=== PATIENT | female | born 1960 | race Caucasian/White ===

== ENCOUNTER 2016-09-26 07:34 | Emergency (ER) | payer BC, OTHER ==
[~2016-09-26] VITALS: Ht 165.1 cm; Wt 92.4 kg
[~2016-09-26 07:34] MED LIST: AMOX875T3 PO; ATV/1 PO; B-COTAB18 PO; IBUP-1428 PO; MULT-506 PO; PRAV20TA PO; PRLSR20 PO; PROB1TAB16 PO; RANI300T2 PO; ROPI1TAB70 PO; SNM/25100 PO; TIZA2CAP PO; VENL150T33 PO
[2016-09-26 07:39] VITALS: TEMP 36.8; Ht 165.1 cm; Wt 92.4 kg
--- NOTE | 2016-09-26 08:16 | EMERGENCY ROOM VISIT NOTE ---
History Report prepared by Faustino: Shawn Jimenez Under the Supervision of: Dr. Tj Medrano M.D. First contact with patient: 07:46 Chief Complaint: URINARY SYMPTOMS Stated Complaint: BLOOD IN URINE AND SEVERE PAIN Nursing Triage Summary: pt c/o back pain on right but both sides hurt started , has blood in urine this am. denies nay hx of kidney stones. has hx of uti. pt reports hx of ms History of Present Illness The patient is a 56 year old female who presents to the Emergency Room with complaints of persistent urinary symptoms that started 4 days ago. The patient also complains of back pain and a subjective fever. The discomfort started on the left side of her back, but is now more on her right side. Today, the patient had some blood in her urine. Per patient's daughter she has a history of urinary problems secondary to MS. She states that with her typical UTIs, she does not experience pain like this. She denies vaginal discharge and nausea at this time. Her last normal menstrual period was in 2006. Source of History: patient Onset: 4 days Position: other () Timing: other (persistent) Associated Symptoms: + back pain, + fevers (subjective), No nausea Note: Denies: vaginal discharge Review of Systems All systems have been listed, reviewed, and are negative other than those previously mentioned. Please see Additional Medical History Sheet. Past Medical & Surgical Medical Problems: (1) GERD (gastroesophageal reflux disease) (2) Multiple sclerosis (3) Perirectal abscess (4) UTI (urinary tract infection) Surgical Problems: (1) Previous back surgery Family History Diabetes mellitus Heart disease Hypertension Sepsis Social History Smoking Status: Never Smoker Drug Use: none Marital Status: Housing Status: lives with family Occupation Status: disabled Current/Historical Medications Scheduled Ciprofloxacin Tab (Cipro), 250 MG PO BID Levodopa/Carbidopa (Sinemet 25MG/100MG), 1 TAB PO DIRECTED Multivitamin (Multivitamin), 1 TAB PO DAILY Omeprazole (Prilosec), 40 MG PO DAILY Pravastatin (Pravachol ), 40 MG PO DAILY Probiotic Product (Probiotic), 1 TAB PO DAILY Ranitidine (Zantac), 300 MG PO BID Ropinirole Hydrochloride (Ropinirole Er), 2 MG PO DAILY Tizanidine (Zanaflex), 2 MG PO TID Venlafaxine Hcl (Venlafaxine Hcl Er), 150 MG PO DAILY Scheduled PRN Hydrocodone/Acetaminophen 5MG/325MG ([place] 5MG/325MG), 1-2 TABLETS PO Q4 PRN for Pain Lorazepam (Ativan), 1 MG PO HS PRN for Anxiety Allergies Coded Allergies: Clonazepam (Unverified Allergy, Mild, RASH, 09/26/16) BEE STING (Verified Allergy, Unknown, ., 09/26/16) Cephalexin (Verified Allergy, Unknown, ., 09/26/16) Cephalosporins (Verified Allergy, Unknown, 09/26/16) Gabapentin (Verified Allergy, Unknown, ., 09/26/16) Physical Exam Vital Signs Date Time Temp Pulse Resp B/P Pulse Ox O2 Delivery O2 Flow Rate FiO2 09/26/16 09:30 66 20 126/75 95 09/26/16 07:39 36.8 78 18 133/84 93 Room Air Physical Exam GENERAL: Patient awake, alert, oriented x 3. Patient follows commands. Patient does not appear toxic. Patient is adequately hydrated and well- nourished. SKIN: No erythema, pallor, cyanosis or rash HEENT: Normal head, pupils equal, reactive to light and accommodation. Ears normal. Oral cavity and posterior pharynx appear normal. Neck: Without adenopathy, no neck vein distention. LUNGS: Clear to auscultation. No wheezes, no rales, no rhonchi. HEART: No murmurs. No gallops. No rubs ABDOMEN: No masses, no rebound, no hepatomegaly or splenomegaly. BACK: Vague right CVA tenderness EXTREMITIES: Patient has weakness consistent with her underlying diagnosis with MS. NEUROLOGIC: Cranial nerves II-XII within normal limits. No gross motor sensory function deficits. Medical Decision & Procedures Laboratory Results 09/26/16 08:20 Red Blood Count 4.39, Mean Corpuscular Volume 91.3, Mean Corpuscular Hemoglobin 31.2, Mean Corpuscular Hemoglobin Concent 34.2, Mean Platelet Volume 10.0, Neutrophils (%) (Auto) 56.6, Lymphocytes (%) (Auto) 35.5, Monocytes (%) (Auto) 5.6, Eosinophils (%) (Auto) 1.7, Basophils (%) (Auto) 0.4, Neutrophils # (Auto) 2.61, Lymphocytes # (Auto) 1.64, Monocytes # (Auto) 0.26, Eosinophils # (Auto) 0.08, Basophils # (Auto) 0.02 09/26/16 08:20 Test 09/26/16 08:20 White Blood Count 4.62 K/uL (4.8-10.8) Red Blood Count 4.39 M/uL (4.2-5.4) Hemoglobin 13.7 g/dL (12.0-16.0) Hematocrit 40.1 % (37-47) Mean Corpuscular Volume 91.3 fL (80-100) Mean Corpuscular Hemoglobin 31.2 pg (25-34) Mean Corpuscular Hemoglobin Concent 34.2 g/dl (32-36) Platelet Count 180 K/uL (130-400) Mean Platelet Volume 10.0 fL (7.4-10.4) Neutrophils (%) (Auto) 56.6 % Lymphocytes (%) (Auto) 35.5 % Monocytes (%) (Auto) 5.6 % Eosinophils (%) (Auto) 1.7 % Basophils (%) (Auto) 0.4 % Neutrophils # (Auto) 2.61 K/uL (1.4-6.5) Lymphocytes # (Auto) 1.64 K/uL (1.2-3.4) Monocytes # (Auto) 0.26 K/uL (0.11-0.59) Eosinophils # (Auto) 0.08 K/uL (0-0.5) Basophils # (Auto) 0.02 K/uL (0-0.2) RDW Standard Deviation 43.5 fL (36.4-46.3) RDW Coefficient of Variation 13.0 % (11.5-14.5) Immature Granulocyte % (Auto) 0.2 % Immature Granulocyte # (Auto) 0.01 K/uL (0.00-0.02) Urine Color ORANGE Urine Appearance CLEAR (CLEAR) Urine pH (4.5-7.5) Urine Specific [place] (1.000-1.030) Urine Protein NEG (NEG) Urine Glucose (UA) (NEG) Urine Ketones (NEG) Urine Occult Blood (NEG) Urine Nitrite (NEG) Urine Bilirubin (NEG) Urine Urobilinogen (NEG) Urine Leukocyte Esterase (NEG) Urine RBC 0-4 /hpf (0-4) Urine WBC 10-30 /hpf (0-5) Urine Epithelial Cells >30 /lpf (0-5) Urine Bacteria 1+ (NEG) Anion Gap 7.0 mmol/L (3-11) Est Creatinine Clear Calc Drug Dose 87.2 ml/min Estimated GFR () 95.6 Estimated GFR (Non- 82.5 BUN/Creatinine Ratio 27.1 (10-20) Calcium Level 9.0 mg/dl (8.5-10.1) Laboratory results as stated above per my review. Medications Administered Medications (Trade) Dose Ordered Sig/Alli Route Start Time Stop Time Status Last Admin Dose Admin Acetaminophen/ Hydrocodone Bitart ([place] 5/325 Tab) 1 tab ONE ONCE PO 09/26/16 09:30 09/26/16 09:33 DC 09/26/16 09:35 1 TAB Ciprofloxacin (Cipro Tab) 250 mg NOW STAT PO 09/26/16 09:25 09/26/16 09:27 DC 09/26/16 09:25 250 MG ED Course 0746: Past medical records reviewed. The patient was evaluated in room B9. A complete history and physical examination was performed. 0925: Ordered Cipro Tab 250 mg PO. 0930: Ordered [place] 5/325 Tab 1 tab PO. 0942: Upon reevaluation, the patient appeared to have improvement of her symptoms. I discussed today's findings with her. She verbalized agreement of the treatment plan. The patient was discharged home. Medical Decision Differential diagnoses include UTI, pyelonephritis, renal insufficiency, or metabolic disorder. Multiple labs and urinalysis were obtained. Please see above. The patient has a urinary tract infection. White count is not elevated. BUN/creatinine are within normal range. Patient will be started on Cipro here and will continue on that medication at home. The patient also was given hydrocodone for pain. The patient is able to drink fluids and was encouraged to drink extra fluids over the next 3-5 days. [place] Drug Monitoring Program Search Results: patient reviewed within database, no issues identified Impression Primary Impression: UTI (urinary tract infection) Scribe Attestation The scribe's documentation has been prepared under my direction and personally reviewed by me in its entirety. I confirm that the note above accurately reflects all work, treatment, procedures, and medical decision making performed by me. Departure Information Dispostion Home / Self-Care Prescriptions Hydrocodone/Acetaminophen 5MG/325MG ([place] 5MG/325MG) Tab 1-2 TABLETS PO Q4 Y for Pain, #12 TAB PRN PAIN Prov: Tj Medrano M.D. 09/26/16 Ciprofloxacin Tab (Cipro) 250 Mg Tab 250 MG PO BID, #19 TAB Prov: Tj Medrano M.D. 09/26/16 Referrals Jerzy Lindo D.O. (PCP) Forms HOME CARE DOCUMENTATION FORM, IMPORTANT VISIT INFORMATION Patient Instructions ED UTI Cystitis Female, [facility] Additional Instructions One Cipro twice a day. Drink extra fluids. 1-2 hydrocodone every 4 hours as needed for moderate to severe pain. Do not drive or operate machinery while taking hydrocodone. Repeat urinalysis in 2 weeks.
[2016-09-26 08:30] LABS: BASO % 0.4 %; BASO ABS # 0.02 K/uL (0-0.2); COMPLETE YES; EOS % 1.7 %; HEMATOCRIT 40.1 % (37-47); IG% 0.2 %; LYMPH % 35.5 %; LYMPH ABS # 1.64 K/uL (1.2-3.4); MEAN CELL VOLUME 91.3 fL (80-100); MEAN CORPUSCULAR HEMOGLOBIN 31.2 pg (25-34); MEAN CORPUSCULAR HGB CONC 34.2 g/dl (32-36); MONO % 5.6 %; NEUT % 56.6 %; PLATELET COUNT 180 K/uL (130-400); RED BLOOD COUNT 4.39 M/uL (4.2-5.4); WHITE BLOOD COUNT 4.62 K/uL (4.8-10.8)
[2016-09-26 08:46] LABS: BUN/CREATININE RATIO 27.1 (10-20); CREATININE 0.79 mg/dl (0.60-1.20)
[2016-09-26 08:47] LABS: MANUAL MICROSCOPIC REQUIRED? YES; REVIEW REQ? NO
[2016-09-26 08:48] LABS: SULFASALICYLIC ACID NEG (NEG); URINE APPEARANCE CLEAR (CLEAR); URINE COLOR ORANGE
[2016-09-26 08:56] LABS: URINE BACTERIA 1+ (NEG); URINE RBC 0-4 /hpf (0-4)
[2016-09-26 08:57] LABS: ZZUR CULT IF INDIC CLEAN CATCH YES
[2016-09-26] MEDS ORDERED: CIPROFLOXACIN 500 MG TAB PO STA (09:25)
[2016-09-26] MEDS ORDERED: CIPR1TAB11 PO (09:29)
[2016-09-26] MEDS ORDERED: HYDR-5688 PO (09:29)
[2016-09-26 09:30] VITALS: BP 126/75; PULSE 66; O2SAT 95
[2016-09-26] MEDS ORDERED: HYDROCODONE/ACETAMOPHEN 5/325MG TAB PO ONE (09:30)
== END 2016-09-26 09:45 | disposition home or self-care (01) ==
LOC: C.EDB 07:37
DX: N39.0 Urinary tract infection, site not specified (principal); G35 Multiple sclerosis; K21.9 Gastro-esophageal reflux disease without esophagitis; Z83.3 Family history of diabetes mellitus; Z82.49 Family history of ischemic heart disease and other diseases of the circulatory system; Z79.899 Other long term (current) drug therapy

== ENCOUNTER 2020-12-30 07:51 | Inpatient (IN) ==
--- NOTE | 2020-12-11 12:39 | PAT Medication Instructions ---
Medication Instructions Date of Service December 11, 2020 Home Medications baclofen 5 mg PO HS lorazepam [Ativan] 0.5 mg PO HS PRN omeprazole 20 mg PO QAM ropinirole 2 mg PO QAM venlafaxine 150 mg PO QAM famotidine [Pepcid] 20 mg PO BID hydrocodone-acetaminophen 1 tab PO HS rosuvastatin [Crestor] 10 mg PO HS cetirizine 10 mg PO QAM cholecalciferol (vitamin D3) [Vitamin D3] 50 mcg PO QAM losartan 25 mg PO QAM melatonin 5 mg PO HS DO NOT take the morning of surgery ropinirole 2 mg PO QAM cetirizine 10 mg PO QAM cholecalciferol (vitamin D3) [Vitamin D3] 50 mcg PO QAM losartan 25 mg PO QAM Take morning of surgery With a small sip of water, OTHERWISE NOTHING TO EAT OR DRINK AFTER MIDNIGHT: omeprazole 20 mg PO QAM venlafaxine 150 mg PO QAM famotidine [Pepcid] 20 mg PO BID Take evening before surgery baclofen 5 mg PO HS lorazepam [Ativan] 0.5 mg PO HS PRN (if needed) famotidine [Pepcid] 20 mg PO BID hydrocodone-acetaminophen 1 tab PO HS rosuvastatin [Crestor] 10 mg PO HS melatonin 5 mg PO HS Other Notes If you have any questions please call us at [phone] or [phone] or [phone] or [phone]
--- NOTE | 2020-12-16 10:18 | Anesthesiology Consultation ---
Date of Service December 16, 2020 Assessment & Plan (1) Encounter for pre-operative examination: - COVID screening: Per assessment on 12/16: Travel screen- Patient will be traveling to [facility] 12/17-12/20. Patient vaccinated and no further travel planned prior to surgery. Preop COVID testing will be > 5 days since return from travel. No known COVID-19 positive contacts or current COVID-19 related symptoms. Surgeon arranging preop COVID testing (scheduled 12/28; [place]). Awaiting results. - Neurology note (11/05/20): Reviewed recent EMG studies. "emg shows evidence for chronic disc issues causing some bilateral leg weakness sosomeof [sic] your issues may not be the ms.." Recommended keeping f/u with Dr. Baldwin and then following up with neurology after orthopedic evaluation. Chart Review Chart Review: Acceptable Risk for Surgery and Patient seen in Pre Admission Testing Teaching & Discussion Pre-Anesthesia Teaching/Discussion Notes: Instructed NPO after midnight before surgery,except medications with 15 cc of water. Medication instructions provided according to the PAT guidelines. History Surgery Operation Date: 12/30/20 07:45 Proposed Procedures p L3-L4 Decompression and Fusion, Possible L2-L3, L4-L5 Hardware Removal, Spinal Cord Monitoring - Blayne Baldwin, Height/Weight Height: 5 ft 5 in Weight: 91.6 kg Allergies Allergy/AdvReac Type Severity Reaction Status Date / Time bee venom protein (honey bee) Allergy Severe Anaphylaxis Verified 12/09/20 11:48 clonazepam Allergy Mild Rash Verified 12/16/20 10:12 cephalexin Allergy Unknown Unknown Verified 12/09/20 11:48 Cephalosporins Allergy Unknown Unknown Verified 12/09/20 11:48 gabapentin Allergy Unknown Unknown Verified 12/09/20 11:48 sulfamethoxazole Allergy Unknown Unknown Verified 12/09/20 11:48 [From Bactrim] trimethoprim [From Bactrim] Allergy Unknown Unknown Verified 12/09/20 11:48 Medications Home Medications Medication Instructions Recorded Confirmed Last Taken baclofen 5 mg PO HS 11/29/18 12/09/20 10/15/20 lorazepam [Ativan] 0.5 mg PO HS PRN 11/29/18 12/09/20 10/15/20 omeprazole 20 mg PO QAM 11/29/18 12/09/20 10/16/20 ropinirole 2 mg PO QAM 11/29/18 12/09/20 10/16/20 venlafaxine 150 mg PO QAM 11/29/18 12/09/20 10/16/20 famotidine [Pepcid] 20 mg PO BID 05/10/20 12/09/20 10/16/20 hydrocodone-acetaminophen 1 tab PO HS 05/10/20 12/09/20 10/15/20 rosuvastatin [Crestor] 10 mg PO HS 10/16/20 12/09/20 10/15/20 cetirizine 10 mg PO QAM 12/09/20 12/09/20 Unknown cholecalciferol (vitamin D3) 50 mcg PO QAM 12/09/20 12/09/20 Unknown [Vitamin D3] losartan 25 mg PO QAM 12/09/20 12/09/20 Unknown melatonin 5 mg PO HS 12/09/20 12/09/20 Unknown Past Medical History Medical History Anxiety Barretts esophagus Degenerative disc disease Depression GERD (gastroesophageal reflux disease) controlled Hiatal hernia Hyperlipidemia Hypertension Lumbar stenosis with neurogenic claudication Multiple sclerosis Follows with [facility] neurology, stable Nocturnal hypoxia 2 LPM at HS Osteoarthritis Periodic limb movement Thyroid nodule under surveillance UTI (urinary tract infection) Hx recurrent Exercise / Class Metabolic Activity II 4-5 Yardwork/Stairs/Walk up hill (one FS (no CP, no SOB)) Past Family History Family History Grandfather Diabetes Past Surgical History Surgical History Fusion of spine L4-5 and S1 History of bilateral tubal ligation History of colonoscopy History of esophagogastroduodenoscopy (EGD) Perirectal abscess resolved> surgery x2 [place] teeth extracted Past Anesthesia History No Hx of Anesthesia Complications and No Family Hx of Anesthesia Complications History of PONV No Hx of PONV and Hx of Motion Sickness (Remote hx as child) Social History Smoking Status: Never smoker Do You Dip or Chew Tobacco: No Hx Alcohol Use: Yes Alcohol type: beer, wine and hard liquor alcohol intake frequency: holidays/special occasions only Hx Substance Use: Yes substance use type: marijuana Last Used Substance Other:: medical marijuana oil > weekly Review of Systems Patient denies chest pain, shortness of breath, dyspnea on exertion, fever, chills, cough, wheezing, palpitations. Physical Exam Vital Signs VITALS BP 105/71 P 80 TEMP 98.3 SP02 95%RA RESP 18 PHYSICAL Full cervical extension range of motion. Full TMJ range of motion. TMD 4 finger breaths Mallampati Score 1 Dentition: intact Lungs: clear throughout to auscultation Cardiac: regular rate and rhythm, no murmurs noted Spine: normal Carotid arteries: negative bruit Extremities: no edema Lab Results Anesthesia Preop Results Results Anesthesia Widget: WBC 5.95 K/uL (4.8-10.8) 12/16/20 Hgb 13.6 g/dL (12.0-16.0) 12/16/20 Hct 40.8 % (37-47) 12/16/20 Plt 229 K/uL (130-400) 12/16/20 PT 9.6 Seconds (9.0-12.0) 12/16/20 PTT 26.0 Seconds (21.0-31.0) 12/16/20 INR 0.9 (0.9-1.1) 12/16/20 Urine Color Yellow 12/16/20 Urine Appearance Clear (Clear) 12/16/20 Urine pH 5.0 (4.5-7.5) 12/16/20 Urine Specific [place] 1.023 (1.000-1.030) 12/16/20 Urine Protein Negative (Negative) 12/16/20 Urine Glucose (UA) Negative (Negative) 12/16/20 Urine Ketones Negative (Negative) 12/16/20 Urine Blood Negative (Negative) 12/16/20 Urine Nitrite Negative (Negative) 12/16/20 Urine Bilirubin Negative (Negative) 12/16/20 Urine Urobilinogen Negative (Negative) 12/16/20 Urine Leukocyte Esterase Negative (Negative) 12/16/20 Blood Type O Positive 12/16/20 Antibody Screen NEGATIVE 12/16/20 Testing Laboratory Results 11/13/20 SODIUM 142 POTASSIUM 4.2 CHLORIDE 106 CO2 25 BUN 19 CREATININE 0.7 GLUCOSE 104 11/03/20 HGBA1C 5.6% Electrocardiogram Date: 10/16/20 Normal sinus rhythm 95 bpm. Possible LAE. LAD. Incomplete right bundle branch block. LVH. Chest X-Ray Date: 10/16/20 Findings: + NAD Stress Test Date: 04/08/20 Type: DSE Stress echo negative for inducible ischemia. LVEF 55 to 59%. Grade 1 diastolic dysfunction. Mild AR/MR. Mildly increased concentric LV wall thickness. 110% MPHR. Other Testing Sleep study (04/07/20): Primary snoring. There was no obstructive sleep apnea seen. Note that supine sleep and REM sleep are seen, but there was no supine REM sleep seen. Nocturnal hypoxemia in the absence of sleep apnea. Increased periodic limb movements consistent with the noted history of restless leg syndrome. There were rare associated arousals. RECOMMENDATIONS: Consider further evaluation for nocturnal hypoxemia. In addition, given the elevated periodic limb movement index, patient may benefit from adjustment of treatment for restless legs. Patient now on 2 LPM HS.
[~2020-12-30 07:51] MED LIST changes: +ACETAMINOPHEN 500 MG TAB PO SCH; -AMOX875T3 PO; -ATV/1 PO; -B-COTAB18 PO; +CLINDAMYCIN 600 MG/54 ML BAG IV SCH; +CeleBREX 200 MG CAP PO SCH; +GABAPENTIN 600 MG DOSE PO SCH; -IBUP-1428 PO; +LR 15ML/HR IV SCH; -MULT-506 PO; -PRAV20TA PO; -PRLSR20 PO; -PROB1TAB16 PO; -RANI300T2 PO; -ROPI1TAB70 PO; -SNM/25100 PO; -TIZA2CAP PO; -VENL150T33 PO
[2020-12-30] MEDS ORDERED: PROPOFOL IV EMULSION 10 MG/ML 20 ML VIAL IV ONE (09:27)
[2020-12-30] MEDS ORDERED: LIDOCAINE 2% 2 ML VIAL/AMP(20MG/ML) INFIL ONE (09:27)
[2020-12-30] MEDS ORDERED: ONDANSETRON INJ 2 MG/ML 2 ML VIAL ONE (09:27)
[2020-12-30] MEDS ORDERED: DEXAMETHASONE SOD INJ 4 MG/ML VIAL ONE (09:27)
[2020-12-30] MEDS ORDERED: fentaNYL citrate 100 MCG/2 ML VIAL ONE (09:28)
[2020-12-30] MEDS ORDERED: MIDAZOLAM HCL 1 MG/ML 2ML VIAL ONE (09:28)
--- NOTE | 2020-12-30 09:35 | History & Physical Bridge Note ---
Date of Service December 30, 2020 History & Physical Bridge Note I have examined the patient, reviewed the History & Physical and in the interval since the performance of the History & Physical I have noted the following changes of clinical significance: no changes noted
--- NOTE | 2020-12-30 09:36 | History & Physical Report ---
Date of Service December 30, 2020 Assessment & Plan (1) Lumbar stenosis with neurogenic claudication: Admission and Anticipated Discharge Date Admission Date: L3-L4 decompression fusion, possible L2-L3, L4-L5 hardware removal History of Present Illness Chief Complaint: Back and leg pain Primary Care Provider: Jerzy Lindo DO This is a 60-year-old female who presents with chronic persistent back and leg pain. After failing since course of nonoperative care is here for surgical invention. Allergies Allergy/AdvReac Type Severity Reaction Status Date / Time bee venom protein (honey bee) Allergy Severe Anaphylaxis Verified 12/30/20 08:26 clonazepam Allergy Mild Rash Verified 12/30/20 08:26 cephalexin Allergy Unknown Unknown Verified 12/30/20 08:26 Cephalosporins Allergy Unknown Unknown Verified 12/30/20 08:26 gabapentin Allergy Unknown Unknown Verified 12/30/20 08:26 sulfamethoxazole Allergy Unknown Unknown Verified 12/30/20 08:26 [From Bactrim] trimethoprim [From Bactrim] Allergy Unknown Unknown Verified 12/30/20 08:26 Home Medications Medication Instructions Recorded Confirmed Type baclofen 5 mg PO HS 11/29/18 12/09/20 History lorazepam [Ativan] 0.5 mg PO HS PRN 11/29/18 12/09/20 History omeprazole 20 mg PO QAM 11/29/18 12/09/20 History ropinirole 2 mg PO QAM 11/29/18 12/30/20 History venlafaxine 150 mg PO QAM 11/29/18 12/09/20 History famotidine [Pepcid] 20 mg PO BID 05/10/20 12/30/20 History hydrocodone-acetaminophen 1 tab PO HS 05/10/20 12/09/20 History rosuvastatin [Crestor] 10 mg PO HS 10/16/20 12/09/20 History cetirizine 10 mg PO QAM 12/09/20 12/30/20 History cholecalciferol (vitamin D3) 50 mcg PO QAM 12/09/20 12/30/20 History [Vitamin D3] losartan 25 mg PO QAM 12/09/20 12/30/20 History melatonin 5 mg PO HS 12/09/20 12/30/20 History acetaminophen [Tylenol Extra 1,000 mg PO Q6H PRN 12/30/20 12/30/20 History Strength] Past Med/Surg History Medical History Anxiety Barretts esophagus Degenerative disc disease Depression GERD (gastroesophageal reflux disease) controlled Hiatal hernia Hyperlipidemia Hypertension Lumbar stenosis with neurogenic claudication Multiple sclerosis Follows with [facility] neurology, stable Nocturnal hypoxia 2 LPM at HS Osteoarthritis Periodic limb movement Thyroid nodule under surveillance UTI (urinary tract infection) Hx recurrent Surgical History Fusion of spine L4-5 and S1 History of bilateral tubal ligation History of colonoscopy History of esophagogastroduodenoscopy (EGD) Perirectal abscess resolved> surgery x2 [place] teeth extracted Family History Grandfather Diabetes Social History Smoking Status: Never smoker Second Hand Exposure: No; Do You Dip or Chew Tobacco: No; Tobacco Cessation Education Requested by Patient: No Hx Alcohol Use: Yes Alcohol type: beer, wine and hard liquor Hx Substance Use: Yes Last Used Substance Other:: medical marijuana oil > weekly Preferred Language: Greek Communication Ability: Effective Director Content Marketing Required: No Beliefs That Will Affect Care: None Current Living Situation: Spouse Other Information That Helps Us Care for You: No Feels Safe at Home: Yes Safety Concerns: Feels Safe At This Time Assistive Devices: Cane, Glasses and Oxygen - at Night Physical Exam Physical Exam: Patient is alert and oriented Heart regular in rhythm Lungs clear to auscultation Results & Data ([facility]) Vital Signs (Past 12 Hours) Vital Signs Temp Pulse Resp BP Pulse Ox 12/30/20 08:37 36.9 C 71 18 132/71 95
[2020-12-30] MEDS ORDERED: CLINDAMYCIN 600 MG/54 ML D5W IV ONE (09:50)
[2020-12-30] MEDS ORDERED: BUPIVACAINE/EPINEPHRINE 0.5% MPF 1:200,000 30 ML VIAL ONE (09:52)
[2020-12-30] MEDS ORDERED: ATROPINE SULFATE 0.1 MG/ML 10ML SYR IV PRN (10:10)
[2020-12-30] MEDS ORDERED: PROMETHAZINE HCL 6.25 MG in SODIUM CHLORIDE 0.9% 50 ML IV PRN (10:10)
[2020-12-30] MEDS ORDERED: ONDANSETRON INJ 2 MG/ML 2 ML VIAL IV PRN ×2 (10:10→13:29)
[2020-12-30] MEDS ORDERED: ePHEDrine sulfate 50 MG/ML AMP IV PRN (10:10)
[2020-12-30] MEDS ORDERED: ROCURONIUM BROMIDE 10 MG/ML 5 ML VIAL IV ONE (10:34)
[2020-12-30] MEDS ORDERED: ePHEDrine sulfate 50 MG/ML SYR ONE (10:57)
[2020-12-30] MEDS ORDERED: GLYCOPYRROLATE 0.2 MG/ML VIAL ONE (11:41)
[2020-12-30] MEDS ORDERED: NEOSTIGMINE METHYLSULFATE 1 MG/ML 10ML VIAL ONE (11:41)
--- NOTE | 2020-12-30 11:50 | Operative Report ---
Post Operative Report Pre & Post Diagnosis Operation Date: 12/30/20 09:35 Pre-Op Diagnosis: Lumbar Stenosis with Neurogenic Claudication Post-Op Diagnosis: Lumbar Stenosis with Neurogenic Claudication I identified the patient and participated in the time-out.: Yes Procedure Operation Date: 12/30/20 09:35 Actual Procedures #1 Removal of posterior instrumentation L4-L5. #2 exploration of fusion L4-5. #3 lumbar decompression with bilateral medial facetectomies and foraminotomies L2-3 and L3-4. #2 posterior spinal fusion L3-L4. #5 placed posterior instrumentation L3-L4. #6 interbody fusion L3-L4. #7 placement peek cage 12 x 22 mm at L3-L4. #8 placement locally harvested morselized autograft in the posterior gutters. #9 patient infuse collagen sponge, master graft in the posterior lateral gutters and I factor in the interbody space. Surgeon Blayne Baldwin, Edm Operator Yandy Morrison Estimated Blood Loss 150 Findings Consistent with Post-Op Diagnosis Specimens None Indications This is a 60-year-old female who presents above-mentioned diagnosis after failing since course of nonoperative care is here for the above-mentioned procedure. Description of Procedure Patient met with identified informed consent obtained. Patient was then taken to the operative suite underwent a patient placed in a prone position the Enoc table atop Nir frame. All bony prominences well-padded eyes inspected to ensure no external pressure placed upon the bed at this point the lumbar spine was prepped and draped sterile fashion. Sharp dissection with the assistance pericardial form down to and exposing the lamina and transverse processes of L3 and instrumentation at L for L5 bilaterally. And then proceeded move the hardware bilaterally explore the fusion mass noted to be mature and intact. Then performed a complete laminectomy of L3 partial laminectomy L2 including bilateral medial facetectomies and foraminotomies addressing severe spinal stenosis. Pedicle screws were then placed in L3-4 bilaterally with assistance of fluoroscopy and the proper sized nigel placed. By way of a transforaminal approach on the left complete discectomy of L3-L4 was performed endplates curetted to subcortically bone and a 12 x 22 mm peek cage filled with I factor tapped in position. The rods were then compressed locked in final position bilaterally. The transverse processes of L3 and L4 burred to subcortically bone. Infuse collagen sponge master graft local autograft was p laced in the posterior gutters. 15 round AURY drain inserted. The incision was then closed with 1 Vicryl the fascia 2-0 Vicryl subcutaneously and 4 Monocryl for final skin closure. Steri-Strip sterile dressings placed. Patient waken taken to PACU stable condition. Please note spinal cord monitoring was utilized at the procedure no changes noted. Lastly Yandy Morrison was present for entire surgery involved the patient positioning complex portions of the surgery and final skin closure. I attest to the content of the Intraoperative Record and any orders documented therein. Any exceptions are noted below.
--- NOTE | 2020-12-30 12:04 | Fluoroscopy Report ---
FL lumbar spine 2-3V CLINICAL HISTORY: L3-L4 DECOMP/FUSION COMPARISON STUDY: Lumbar spine radiographs August 15, 2014. FLUOROSCOPY TIME: 8 seconds. FLUOROSCOPIC IMAGES: 2 FINDINGS: Previous L4-L5 discectomy is noted. Previous hardware was removed. Subsequent L3-L4 discect hossein, posterior decompression bilateral pedicle screw fusion is noted. The hardware is intact. IMPRESSION: Fluoroscopy provided during L3-L4 discectomy, posterior decompression and bilateral pedi jessy screw fusion. ACT 112: Negative or not required by law. Electronically signed by: Jason Caceres M.D. 12/30/2020 12:03 PM
[2020-12-30] MEDS: fentaNYL citrate 100 MCG/2 ML VIAL IV PRN ×3 (12:15→12:55)
[2020-12-30] MEDS ORDERED: FLOSEAL HEMOSTATIC MATRIX 10ML TOP ONE (13:08)
--- NOTE | 2020-12-30 13:24 | Anesthesiology Progress Note ---
Date of Service December 30, 2020 Anesthesia Post Procedure Vital Signs Vital Signs: Temp Pulse Pulse Resp BP BP Pulse Ox 12/30/20 13:10 69 18 110/70 97 12/30/20 13:00 36.4 C L 84 16 112/66 97 12/30/20 12:50 65 16 112/62 96 12/30/20 12:40 79 16 110/64 96 12/30/20 12:30 70 16 106/65 98 12/30/20 12:20 66 16 131/65 100 12/30/20 12:10 84 18 112/65 100 12/30/20 12:08 36.2 C L 82 20 125/80 100 12/30/20 08:37 36.9 C 71 18 132/71 95 Pain Intensity Lower Back: Pain Intensity: 3 Transfer of Care Handoff Completed per policy Notes Mental Status: alert / awake / arousable Patient Amnestic to Procedure: Yes Nausea / Vomiting: adequately controlled Pain: adequately controlled Airway Patency, RR, SpO2: stable & adequate BP & HR: stable & adequate Hydration State: stable & adequate Anesthetic Complications: no major complications apparent
[2020-12-30] MEDS ORDERED: LORazepam 0.5 MG TAB PO PRN (13:29)
[2020-12-30] MEDS ORDERED: ONDANSETRON 4 MG OD TAB PO PRN (13:29)
[2020-12-30] MEDS ORDERED: HYDROmorphone INJ 1 MG/ML SYRINGE IV PRN (13:29)
[2020-12-30] MEDS ORDERED: diphenhydrAMINE Capsule 25 MG CAP PO PRN (13:29)
[2020-12-30] MEDS ORDERED: ALUMINUM/MAGNESIUM SUSP 30 ML UDC PO PRN (13:29)
[2020-12-30] MEDS ORDERED: DO NOT ADMINISTER PNEUMOCOCCAL VACCINE PRN (13:29)
[2020-12-30] MEDS ORDERED: LORazepam 0.5 MG/1 ML VIAL IV PRN (13:29)
[2020-12-30] MEDS ORDERED: METOCLOPRAMIDE HCL INJ 5 MG/ML 2 ML VIAL IV PRN (13:29)
[2020-12-30] MEDS ORDERED: hydrOXYzine HCl 25 MG TAB PO PRN (13:29)
[2020-12-30] MEDS ORDERED: HYDROmorphone INJ 0.5 MG/0.5 ML SYR IV PRN (13:29)
[2020-12-30] MEDS ORDERED: traMADol HCL 50 MG TABLET PO PRN (13:29)
[2020-12-30] MEDS ORDERED: NON-FORMULARY MEDICATION (Acetaminophen 500 mg Capsule) PO PRN (13:29)
[2020-12-30] MEDS ORDERED: DO NOT ADMINISTER FLU VACCINE PRN (13:29)
[2020-12-30] MEDS ORDERED: SOD PHOSPHATE/SOD BIPHOSPHATE ENEMA 132 ML BTL PR PRN (13:29)
[2020-12-30] MEDS ORDERED: NALOXONE HCL 0.4 MG/1 ML VIAL/CARP IV PRN (13:29)
[2020-12-30] MEDS ORDERED: ACETAMINOPHEN 1,000 MG/100 ML VIAL IV PRN (13:29)
[2020-12-30] MEDS ORDERED: PROMETHAZINE HCL 12.5 MG in SODIUM CHLORIDE 0.9% 50 ML IV PRN (13:29)
[2020-12-30] MEDS ORDERED: MAGNESIUM HYDROXIDE SUSP 30 ML UDC PO PRN (13:29)
[2020-12-30] MEDS ORDERED: ACETAMINOPHEN 500 MG TAB PO PRN (13:29)
[2020-12-30] MEDS ORDERED: FAMOTIDINE 20 MG TAB PO PRN (13:29)
[2020-12-30] MEDS: oxyCODONE HCL IR 5 MG TAB (IMMEDIATE RELEASE) PO PRN ×2 (14:10→18:40)
[2020-12-30] MEDS: LACTATED RINGER'S 1,000 ML IV SCH ×2 (14:19→18:09)
--- NOTE | 2020-12-30 15:33 | Hospitalist Consultation ---
Date of Consultation December 30, 2020 Assessment & Plan (1) Lumbar stenosis with neurogenic claudication: - POD#0 L3-L4 decompression and fusion by Dr. Baldwin - activity and wound care orders as per ortho - pain control with bowel regimen - PT/OT - monitor H/H for acute blood loss anemia and transfuse blood products PRN - EBL 150 cc (2) Hypertension: -BP borderline low -Hold losartan for now (3) Diastolic dysfunction: -Appears euvolemic, does not take routine diuretics -Monitor volume status (4) Nocturnal hypoxia: -2 L O2 at bedtime (5) Multiple sclerosis: -Stable (6) DVT prophylaxis: -TEDs/SCDs as per spine Ortho Thank you for this consultation. We will follow the patient with you during their hospital stay. You can reach a member of the [facility] Hospitalist Team 23/01 via the [facility] Hospitalist role in [place] Text. Supervising Physician Co-Signing Physician Notes I have seen and examined the patient and have discussed the case with the provider above. I agree with the assessment and plan as stated. 60 yo F starting to report some back pain at this point, nursing is aware. She is otherwise doing well. Denies any recent issues with weakness from her MS, not currently on therapy. No LE numbness or tingling. Physical exam as above-AURY drain in place. NVI in lower extremities bilaterally. Agree with holding losartan in immediate post-op period. DO Carlos History of Present Illness Reason for Consultation: Postop medical management Requesting Physician: Dr. Baldwin Attending Physician: Dr. Gonzalez History of Present Illness 60-year-old female with PMH multiple sclerosis, HTN, nocturnal hypoxia on 2L O2 at bedtime, diastolic dysfunction, GERD, and other problems as below who is status post L3-L4 decompression and fusion today by Dr. Baldwin. Postoperatively, the patient is doing well. She was reporting incisional pain however is currently controlled. No numbness, weakness, or tingling to the lower extremities. Denies chest pain shortness of breath. No lightheadedness or dizziness. Denies abdominal pain or nausea. Regan catheter is in place draining clear yellow urine. Allergies Allergy/AdvReac Type Severity Reaction Status Date / Time bee venom protein (honey bee) Allergy Severe Anaphylaxis Verified 12/30/20 08:26 clonazepam Allergy Mild Rash Verified 12/30/20 08:26 cephalexin Allergy Unknown Unknown Verified 12/30/20 08:26 Cephalosporins Allergy Unknown Unknown Verified 12/30/20 08:26 gabapentin Allergy Unknown Unknown Verified 12/30/20 08:26 sulfamethoxazole Allergy Unknown Unknown Verified 12/30/20 08:26 [From Bactrim] trimethoprim [From Bactrim] Allergy Unknown Unknown Verified 12/30/20 08:26 Home Medications Medication Instructions Recorded Confirmed Type baclofen 5 mg PO HS 11/29/18 12/09/20 History lorazepam [Ativan] 0.5 mg PO HS PRN 11/29/18 12/09/20 History omeprazole 20 mg PO QAM 11/29/18 12/09/20 History ropinirole 2 mg PO QAM 11/29/18 12/30/20 History venlafaxine 150 mg PO QAM 11/29/18 12/09/20 History famotidine [Pepcid] 20 mg PO BID 05/10/20 12/30/20 History hydrocodone-acetaminophen 1 tab PO HS 05/10/20 12/09/20 History rosuvastatin [Crestor] 10 mg PO HS 10/16/20 12/09/20 History cetirizine 10 mg PO QAM 12/09/20 12/30/20 History cholecalciferol (vitamin D3) 50 mcg PO QAM 12/09/20 12/30/20 History [Vitamin D3] losartan 25 mg PO QAM 12/09/20 12/30/20 History melatonin 5 mg PO HS 12/09/20 12/30/20 History acetaminophen [Tylenol Extra 1,000 mg PO Q6H PRN 12/30/20 12/30/20 History Strength] Patient History Medical History (Updated 12/30/20 @ 15:29 by ROBIN Shanks) Anxiety Barretts esophagus Colles' fracture Degenerative disc disease Depression Diastolic dysfunction GERD (gastroesophageal reflux disease) controlled Hiatal hernia Hyperlipidemia Hypertension Lumbar stenosis with neurogenic claudication Multiple sclerosis Follows with [facility] neurology, stable Nocturnal hypoxia 2 LPM at HS Osteoarthritis Periodic limb movement Thyroid nodule under surveillance UTI (urinary tract infection) Hx recurrent Surgical History Fusion of spine L4-5 and S1 History of bilateral tubal ligation History of colonoscopy History of esophagogastroduodenoscopy (EGD) Perirectal abscess resolved> surgery x2 [place] teeth extracted Family History Grandfather Diabetes Social History Smoking Status: Never smoker Second Hand Exposure: No; Do You Dip or Chew Tobacco: No; Tobacco Cessation Education Requested by Patient: No Hx Alcohol Use: Yes Alcohol type: beer, wine and hard liquor Hx Substance Use: Yes Last Used Substance Other:: medical marijuana oil > weekly Preferred Language: Somali Communication Ability: Effective Field Observer Required: No Beliefs That Will Affect Care: None Current Living Situation: Spouse Other Information That Helps Us Care for You: No Feels Safe at Home: Yes Safety Concerns: Feels Safe At This Time Assistive Devices: Glasses Review of Systems Review of Systems: ROS per HPI, all other systems reviewed and negative Physical Exam Constitutional: WD/WN, vitals as above Eyes: PERRL, conjunctivae normal, anicteric sclerae ENMT: external ear and nose normal, oropharynx normal Respiratory: normal respiratory effort, lungs clear to auscultation Cardiovascular: Rate/Rhythm: regular rate and regular rhythm Vessels: normal peripheral pulses Extremities: + edema (+1 ankle edema noted) Gastrointestinal (Abdomen): normal bowel sounds, soft, nontender, no hepatosplenomegaly Musculoskeletal: no cyanosis or clubbing, extremities motor strength 5/5 S/p back surgery, pedal pushes and pulls strong bilaterally, drain in place draining bloody drainage Skin: no rashes, warm and dry Neurologic: PERRL, EOMI, accommodation nl, no face palsy, no dysarthria Psychiatric: A+Ox3, euthymic affect Genitourinary: Regan in place draining clear yellow urine Results & Data Results & Data ([facility]) Vital Signs (Past 12 Hours) Vital Signs Temp Pulse Pulse Pulse Resp BP BP 12/30/20 14:31 36.5 C 80 18 98/62 L 12/30/20 14:00 36.5 C 94 H 17 95/59 L 12/30/20 13:10 69 18 110/70 12/30/20 13:00 36.4 C L 84 16 112/66 12/30/20 12:50 65 16 112/62 12/30/20 12:40 79 16 110/64 12/30/20 12:30 70 16 106/65 12/30/20 12:20 66 16 131/65 12/30/20 12:10 84 18 112/65 12/30/20 12:08 36.2 C L 82 20 125/80 12/30/20 08:37 36.9 C 71 18 132/71 Pulse Ox 12/30/20 14:31 95 12/30/20 14:00 97 12/30/20 13:10 97 12/30/20 13:00 97 12/30/20 12:50 96 12/30/20 12:40 96 12/30/20 12:30 98 12/30/20 12:20 100 12/30/20 12:10 100 12/30/20 12:08 100 12/30/20 08:37 95
[2020-12-30] MEDS: CLINDAMYCIN 600 MG in DEXTROSE 5% 50 ML IV SCH (18:40)
[2020-12-30] MEDS: FAMOTIDINE 20 MG TAB PO SCH (19:37)
[2020-12-30] MEDS: BACLOFEN 10 MG TAB PO SCH (19:37)
[2020-12-30] MEDS: DOCUSATE SODIUM/SENNA 50/8.6MG TAB PO SCH (19:37)
[2020-12-30] MEDS: ROSUVASTATIN CALCIUM 10 MG TAB PO SCH (19:37)
[2020-12-30] MEDS: rOPINIRole HCL 1 MG TABLET PO SCH (19:38)
[2020-12-30] MEDS: MELATONIN 3 MG TAB PO SCH (21:23)
[2020-12-31] MEDS: CLINDAMYCIN 600 MG in DEXTROSE 5% 50 ML IV SCH (00:56)
[2020-12-31] MEDS: POLYETHYLENE (MIRALAX) 17 GM PACK PO SCH ×3 (05:02→17:45)
[2020-12-31] MEDS: oxyCODONE HCL IR 5 MG TAB (IMMEDIATE RELEASE) PO PRN ×4 (06:06→20:04)
[2020-12-31 06:34] LABS: Basophils # (auto) 0.01 K/uL (0-0.2); Basophils % (auto) 0.1 %; Hematocrit (blood only) 37.1 % (37-47); Hemoglobin 12.5 g/dL (12.0-16.0); Immature Granulocytes # (auto) 0.02 K/uL (0.00-0.02); Immature Granulocytes % (auto) 0.2 %; Lymphocytes # (auto) 1.26 K/uL (1.2-3.4); Lymphocytes % (auto) 9.6 %; Mean Corpuscular Hemoglobin 32.1 pg (25-34); Mean Corpuscular Hgb Conc 33.7 g/dL (32-36); Mean Corpuscular Volume 95.4 fL (80-100); Mean Platelet Volume 10.1 fL (7.4-10.4); Monocytes # (auto) 0.59 K/uL (0.11-0.59); Monocytes % (auto) 4.5 %; Neutrophils # (auto) 11.21 K/uL (1.4-6.5); Neutrophils % (auto) 85.6 %; Platelet Count 239 K/uL (130-400); RDW Standard Deviation 45.3 fL (36.4-46.3); Red Blood Count 3.89 M/uL (4.2-5.4); White Blood Count 13.09 K/uL (4.8-10.8)
[2020-12-31 07:13] LABS: BUN Creatinine Ratio 17.9 (10-20); Calcium 8.8 mg/dl (8.5-10.1); Creatinine Clr Calc Pharmacy 90.1 ml/min; Est GFR (Non-African American) 89.8 ml/min; Potassium 3.9 mmol/L (3.5-5.1)
--- NOTE | 2020-12-31 08:11 | Orthopedic Progress Note ---
Date of Service December 31, 2020 Assessment & Plan (1) Lumbar stenosis with neurogenic claudication: Patient is postoperative day one hardware removal of L4-5, TLIF L3-4. She is doing well. We will maintain AURY drain. DVT prophylaxis in the form teds and SCDs. Continue with pain control. Will start physical therapy today. Anticipate discharge home over the weekend. Admission and Anticipated Discharge Date Admission Date: December 30, 2020 Supervising Physician Co-Signing Physician Notes Dr. Blayne Baldwin Cheryl Nancy is postoperative day one hardware removal L4-5, TLIF L3-4. No issues overnight. AURY drain output last shift was 100 cc. H&H is morning are 12.5 and 37.1 respectively. Denies radicular leg pain. Complains of modest back pain. No other complaints. Review of Systems Review of Systems: All systems reviewed & are unremarkable except as noted in HPI & below Physical Exam Physical Exam: She is in no acute distress Alert and oriented x3 Lumbar dressing is clean dry and intact with functioning AURY drain Calves are soft nontender bilaterally with ADAN hose intact Strength is intact bilateral lower extremities. Constitutional: WD/WN, vitals as above Eyes: normal visual reid by confrontation ENMT: external ear and nose normal, oropharynx normal Neck: normal visual inspection Respiratory: normal respiratory effort Cardiovascular: Extremities: normal capillary refill Chest (Breasts): Chest: normal inspection of chest Gastrointestinal (Abdomen): Inspection/Auscultation: abdomen normal to inspection Musculoskeletal: no cyanosis or clubbing, extremities motor strength 5/5 Extremities: extremities normal to inspection and strength 5/5 throughout Skin: no rashes, warm and dry Neurologic: normal touch/pain/proprioception and moves all extremities Psychiatric: A+Ox3, euthymic affect Results & Data ([facility]) Vital Signs (Past 12 Hours) Vital Signs Temp Pulse Resp BP Pulse Ox 12/31/20 07:24 36.8 C 67 18 130/87 96 12/31/20 03:00 37.1 C 71 16 122/76 95 12/30/20 23:32 36.6 C 72 17 117/72 94
[2020-12-31] MEDS: CETIRIZINE HCL 10 MG TABLET PO SCH (08:31)
[2020-12-31] MEDS: FAMOTIDINE 20 MG TAB PO SCH ×2 (08:31→20:04)
[2020-12-31] MEDS: CHOLECALCIFEROL 1,000 UNITS 25 MCG TAB PO SCH (08:32)
[2020-12-31] MEDS: rOPINIRole HCL 1 MG TABLET PO SCH ×3 (08:32→20:03)
[2020-12-31] MEDS: PANTOprazole 40 MG TAB PO SCH (08:32)
[2020-12-31] MEDS: VENLAFAXINE HCL XR 150 MG CAPXR PO SCH (08:33)
[2020-12-31] MEDS ORDERED: LOSARTAN POTASSIUM 25 MG TAB PO SCH (09:00)
--- NOTE | 2020-12-31 15:22 | Hospitalist Progress Note ---
Date of Service December 31, 2020 Assessment & Plan (1) Lumbar stenosis with neurogenic claudication: - POD#1 L3-L4 decompression and fusion by Dr. Baldwin - activity and wound care orders as per ortho - pain control with bowel regimen - PT/OT - monitor H/H for acute blood loss anemia and transfuse blood products PRN (2) Hypertension: -BP borderline low. Cont to hold losartan for now (3) Nocturnal hypoxia: -2 L O2 at bedtime (4) Multiple sclerosis: chronic, stable. Not requiring medications at this time. Typically walks with intermittent walker use to help with balance. Last "flare" was August 2020. Uses baclofen, ropinorole for restless legs. (5) Depression: chronic, stable. Cont venlafaxine per home regimen. (6) DVT prophylaxis: -TEDs/SCDs as per spine Ortho Thank you for this consultation. We will follow the patient with you during their hospital stay. You can [facility] via the [facility] role in [place] Text. Umm Gonzalez, [facility] and Anticipated Discharge Date Admission Date: December 30, 2020 Subjective POD #1 s/p lumbar surgery, tired but was able to catch up on sleep. Some pain still present today as discussed wtih ortho PA. Otherwise she is tolerating PO and doing well generally. Review of Systems Review of Systems: All systems reviewed & are unremarkable except as noted in Subjective Physical Exam Physical Exam: CONSTITUTIONAL: WNWD, vitals as above, generally well- appearing EYES: normal conjunctivae, no scleral icterus ENT: external ear and nose normal, MMM RESPIRATORY: clear to auscultation bilaterally, no crackles, rales or wheezes, normal respiratory effort CARDIOVASCULAR: regular rate and rhythm, S1 and 2 heard without murmurs, gallops or rubs, no JVD, no peripheral edema GASTROINTESTINAL: soft, nontender, nondistended. MUSCULOSKELETAL: strength 5/5 throughout, limited movement in legs with recent back surgery. SKIN: warm and dry, back incision covered with surgical bandage-c/d/i-AURY drain in place NEUROLOGIC: CN 2-12 grossly intact, no sensory deficit, normal cognition, normal speech PSYCHIATRIC: alert cooperative and oriented to person, place and time. Results & Data Results & Data ([facility]) Vital Signs (Past 12 Hours) Vital Signs Temp Pulse Resp BP Pulse Ox 12/31/20 14:52 37.0 C 84 20 113/63 94 12/31/20 11:39 36.7 C 72 20 132/85 99 12/31/20 07:24 36.8 C 67 18 130/87 96 Laboratory Results Short CBC 12/31/20 Range/Units 06:09 WBC 13.09 H (4.8-10.8) K/uL Hgb 12.5 (12.0-16.0) g/dL Hct 37.1 (37-47) % Plt Count 239 (130-400) K/uL BMP 12/31/20 06:09 Sodium 139 Potassium 3.9 Chloride 107 Carbon Dioxide 27 BUN 13 Creatinine 0.72 Glucose 131 H Calcium 8.8 Medications Administered Current Inpatient Medications Acetaminophen (Acetaminophen 500 Mg Tab) 1,000 mg PO Q8H PRN PRN Reason: MILD Pain Scale 1,2,3 & Pre PT Stop: 01/29/21 13:28 Al Hydrox/Mg Hydrox/Simethicone (Aluminum/Magnesium Susp 30 Ml Udc) 30 ml PO Q6H PRN PRN Reason: Dyspepsia Stop: 01/29/21 13:28 Baclofen (Baclofen 10 Mg Tab) 5 mg PO HS [facility] Stop: 01/29/21 20:59 Last Admin: 12/30/20 19:37 Dose: 5 mg Documented by: Bisacodyl (Bisacodyl 10 Mg Supp) 10 mg ID DAILY PRN PRN Reason: Constipation Stop: 01/31/21 07:59 Cetirizine HCl (Cetirizine Hcl 10 Mg Tablet) 10 mg PO QAM [facility] Stop: 01/30/21 08:59 Last Admin: 12/31/20 08:31 Dose: 10 mg Documented by: Diphenhydramine HCl (Diphenhydramine Capsule 25 Mg Cap) 25 mg PO Q6H PRN PRN Reason: Allergic Rhinitis/Insomnia Stop: 01/29/21 13:28 Famotidine (Famotidine 20 Mg Tab) 20 mg PO BID MARIE Stop: 01/29/21 20:59 Last Admin: 12/31/20 08:31 Dose: 20 mg Documented by: Hydromorphone HCl (Hydromorphone Inj 0.5 Mg/0.5 Ml Syr) 0.5 mg IV Q3H PRN PRN Reason: MOD pain (scale 4-6) & Pre PT Stop: 01/13/21 13:28 Last Admin: 12/31/20 00:51 Dose: 0.5 mg Documented by: Hydromorphone HCl (Hydromorphone Inj 1 Mg/Ml Syringe) 1 mg IV Q3H PRN PRN Reason: severe pain (scale 7-10) Stop: 01/13/21 13:28 Last Admin: 12/31/20 07:10 Dose: 1 mg Documented by: Hydroxyzine HCl (Hydroxyzine Hcl 25 Mg Tab) 25 mg PO Q8H PRN PRN Reason: Anxiety Stop: 01/29/21 13:28 Promethazine HCl 12.5 mg/ (Sodium Chloride) 50.5 mls @ 202 mls/hr IV Q6H PRN PRN Reason: Nausea &/or Vomiting Stop: 01/29/21 13:28 Lorazepam (Ativan) 0.5 mg in 1 mls @ 1 mls/min IV Q8H PRN PRN Reason: Sedation/Anxiety Stop: 01/29/21 13:28 Influenza Virus Vaccine Quadrival (Do Not Administer Flu Vaccine) 1 ea N/A PRN PRN PRN Reason: Notification Stop: 01/29/21 13:28 Lorazepam (Lorazepam 0.5 Mg Tab) 0.5 mg PO Q8H PRN PRN Reason: sedation/anxiety Stop: 01/29/21 13:28 Losartan Potassium (Losartan Potassium 25 Mg Tab) 25 mg PO QAM [facility] Stop: 01/30/21 08:59 Last Admin: 12/31/20 08:31 Dose: 25 mg Documented by: Magnesium Hydroxide (Magnesium Hydroxide Susp 30 Ml Udc) 30 ml PO Q24H PRN PRN Reason: Constipation Stop: 01/29/21 13:28 Melatonin (Melatonin 3 Mg Tab) 3 mg PO HSZ MARIE Stop: 01/29/21 21:59 Last Admin: 12/30/20 21:23 Dose: 3 mg Documented by: Metoclopramide HCl (Metoclopramide Hcl Inj 5 Mg/Ml 2 Ml Vial) 10 mg IV Q6H PRN PRN Reason: Nausea &/or Vomiting Stop: 01/29/21 13:28 Miscellaneous (Ropinirole 2 Mg Extended Release~Order Awaiting Action) 1 ea N/A QS MARIE Stop: 01/29/21 15:59 Last Admin: 12/31/20 08:31 Dose: Not Given Documented by: Naloxone HCl (Naloxone Hcl 0.4 Mg/1 Ml Vial/Carp) 0.1 mg IV Q5M PRN PRN Reason: Oversedation/respiratory dep Stop: 01/29/21 13:28 Ondansetron HCl (Ondansetron Inj 2 Mg/Ml 2 Ml Vial) 4 mg IV Q6H PRN PRN Reason: Nausea &/or Vomiting Stop: 01/29/21 13:28 Ondansetron HCl (Ondansetron 4 Mg Od Tab) 4 mg PO Q6H PRN PRN Reason: Nausea Stop: 01/29/21 13:28 Oxycodone HCl (Oxycodone Hcl Ir 5 Mg Tab (Immediate Release)) 5 - 10 mg PO Q4H PRN PRN Reason: Pain & Pre PT Stop: 01/13/21 13:28 Last Admin: 12/31/20 11:35 Dose: 10 mg Documented by: Pantoprazole Sodium (Pantoprazole 40 Mg Tab) 40 mg PO QAM MARIE Stop: 01/30/21 08:59 Last Admin: 12/31/20 08:32 Dose: 40 mg Documented by: Pneumococcal Polyvalent Vaccine (Do Not Administer Pneumococcal Vaccine) 1 ea N/A PRN PRN PRN Reason: Notification Stop: 01/29/21 13:28 Polyethylene Glycol (Polyethylene (Miralax) 17 Gm Pack) 17 gm PO Q6 MARIE Stop: 01/30/21 05:59 Last Admin: 12/31/20 11:35 Dose: 17 gm Documented by: Ropinirole HCl (Ropinirole Hcl 1 Mg Tablet) 0.5 mg PO TID MARIE Stop: 01/29/21 20:59 Last Admin: 12/31/20 08:32 Dose: 0.5 mg Documented by: Rosuvastatin Calcium (Rosuvastatin Calcium 10 Mg Tab) 10 mg PO HS [facility] Stop: 01/29/21 20:59 Last Admin: 12/30/20 19:37 Dose: 10 mg Documented by: Senna/Docusate Sodium (Docusate Sodium/Senna 50/8.6mg Tab) 2 tab PO HS [facility] Stop: 01/29/21 20:59 Last Admin: 12/30/20 19:37 Dose: 2 tab Documented by: Sodium Biphosphate/Sodium Phosphate (Sod Phosphate/Sod Biphosphate Enema 132 Ml Btl) 132 ml ID ONE PRN PRN Reason: Constipation Stop: 01/29/21 13:28 Tramadol HCl (Tramadol Hcl 50 Mg Tablet) 50 - 100 mg PO Q4H PRN PRN Reason: Moderate-Severe pain & Pre PT Stop: 01/29/21 13:28 Last Admin: 12/30/20 21:23 Dose: 50 mg Documented by: Venlafaxine HCl (Venlafaxine Hcl Xr 150 Mg Capxr) 150 mg PO [facility] Stop: 01/30/21 08:59 Last Admin: 12/31/20 08:33 Dose: 150 mg Documented by: Vitamin D (Cholecalciferol 1,000 Units 25 Mcg Tab) 2,[facility] [place]: 01/30/21 08:59 Last Admin: 12/31/20 08:32 Dose: 2,000 units Documented by:
[2020-12-31] MEDS: MELATONIN 3 MG TAB PO SCH (20:03)
[2020-12-31] MEDS: DOCUSATE SODIUM/SENNA 50/8.6MG TAB PO SCH (20:03)
[2020-12-31] MEDS: BACLOFEN 10 MG TAB PO SCH (20:04)
[2020-12-31] MEDS: ROSUVASTATIN CALCIUM 10 MG TAB PO SCH (20:04)
[2021-01-01] MEDS: oxyCODONE HCL IR 5 MG TAB (IMMEDIATE RELEASE) PO PRN ×3 (00:14→12:08)
[2021-01-01] MEDS: POLYETHYLENE (MIRALAX) 17 GM PACK PO SCH ×3 (00:14→12:08)
[2021-01-01] MEDS: CHOLECALCIFEROL 1,000 UNITS 25 MCG TAB PO SCH (07:39)
[2021-01-01] MEDS: FAMOTIDINE 20 MG TAB PO SCH (07:40)
[2021-01-01] MEDS: PANTOprazole 40 MG TAB PO SCH (07:40)
[2021-01-01] MEDS: CETIRIZINE HCL 10 MG TABLET PO SCH (07:40)
[2021-01-01] MEDS: VENLAFAXINE HCL XR 150 MG CAPXR PO SCH (07:40)
[2021-01-01] MEDS: rOPINIRole HCL 1 MG TABLET PO SCH ×2 (07:40→14:57)
[2021-01-01] MEDS ORDERED: bisacodyL 10 MG SUPP PR PRN (08:00)
--- NOTE | 2021-01-01 09:41 | Discharge Summary ---
Date of Service January 01, 2021 Admission HPI Per Admitting Provider This is a 60-year-old female who presents with chronic persistent back and leg pain. After failing since course of nonoperative care is here for surgical invention. Principal Diagnosis Lumbar spinal stenosis with neurogenic claudication Discharge Data Allergies Allergy/AdvReac Type Severity Reaction Status Date / Time bee venom protein (honey bee) Allergy Severe Anaphylaxis Verified 12/30/20 08:26 clonazepam Allergy Mild Rash Verified 12/30/20 08:26 cephalexin Allergy Unknown Unknown Verified 12/30/20 08:26 Cephalosporins Allergy Unknown Unknown Verified 12/30/20 08:26 gabapentin Allergy Unknown Unknown Verified 12/30/20 08:26 sulfamethoxazole Allergy Unknown Unknown Verified 12/30/20 08:26 [From Bactrim] trimethoprim [From Bactrim] Allergy Unknown Unknown Verified 12/30/20 08:26 Consultations 12/30/20 13:29 Consult Hospitalist Routine Procedures Performed Operation Date: 12/30/20 09:35 Actual Procedures p L3-L4 Decompression and Fusion with Insertion of Interbody, Application of Bone Morphogenetic Protein, L4-L5 Hardware Removal, Spinal Cord Monitoring(Not Applicable) - Blayne Baldwin DO Ordered Studies 12/30/20 09:35 FL lumbar spine 2-3V Routine Hospital Course (1) Lumbar stenosis with neurogenic claudication: Patient with lumbar decompression fusion trial as well as leg orthopedic for postop labor postop day 1 she was up and ambulating progressed to postop day #2. AURY drain decreasing probably. Pain well controlled. Excellent strength testing. Subsequent discharge home. Discharge orders instructions from the chart for further review. Total Time Total Time Spent Total Time Spent (In Minutes): 20 minutes Discharge Plan Discharge Items Patient Disposition: Home - Self-Care Reason For Visit: Spinal Stenosis, Lumbar Region without Neurogenic Discharge Diagnosis: Lumbar spinal stenosis with neurogenic claudication Activity: As commented below Non-emergency contact: Primary Care Provider Call non-emergency contact if: you have any medication questions Follow-up/Referrals: Jerzy Lindo DO [Primary Care Provider] - Diet: Regular Addtl Attending Provider Instructions: ACTIVITY RECOMMENDATIONS: SELF CARE INSTRUCTIONS AFTER THORACIC/LUMBAR FUSIONS 1. You may walk to your tolerance. It is good exercise for your legs and back. Expect some back and intermittent leg aches and pains. 2. You may perform "counter-top" level activities (make a sandwich, hilda with a project, etc.). 3. No bending or lifting of more than 10 pounds or back twisting of any nature (roll like a log when turning in bed). 4. You may ride in a car for 20-30 minutes at a time. No driving until after your first visit with your doctor. 5. Frequent changes of position and restricting sitting to 30 minutes at a time will help limit the amount of back spasms and stiffness you may experience. 6. You may discontinue the use of ambulatory aids (cane, crutches, etc.) once your strength and confidence allow. 7. You may copying machine repairer the shower and let water strike your incision when you arrive home at least once daily. Do not take a tub bath, sit in a hot tub or go into a swimming pool until after your first recheck in the office. SPECIAL CARE INSTRUCTIONS: VERY IMPORTANT TO READ AND REVIEW A. Your surgical incision has been closed with a cosmetic suture under the skin that will dissolve in about 6 weeks. In 14 days, you can use a pair of clean scissors and cut the suture that is left outside of the skin at the ends of your incision. 1. The small skin tapes can be removed 7 days after surgery if they have not fallen off by that point. 2. You may keep the wound open to air as much as possible to promote healing after post-op day number 5 unless told otherwise by your doctor. 3. If you think the wound looks like it is becoming infected (redness or worsening drainage) and/or you are experiencing fever, chill or worsening back pain and muscle spasms, contact the office so that we may evaluate you as soon as possible. B. Complications are uncommon, but please contact us if you have any signs or symptoms of: 1. wound infection (fever higher than 102.5 degrees F, redness, separation of wound, drainage, or increasing pain from the incision) 2. blood clots in legs (pain, swelling, redness and warmth in legs) 3. urinary tract infection (fever higher than 102.5 degrees F, burning upon urination or increased frequency of urination) 4. nerve problems (inability to walk on your toes or heels, numbness, loss of bowel or bladder control) 5. any other symptoms that concern you C. Please call the office at if you have any concerns or questions about your operation or recovery. D. No smoking! Smoking drastically decreases the chance of a solid fusion. E. Do not take any anti-inflammatory medications (Indocin, Advil, Motrin, Aspirin, Naprosyn, etc.) as these may inhibit the chance of a solid fusion. Tylenol is okay to take for pain. MANAGING PAIN AFTER SPINAL SURGERY 1. Narcotic medication is intended for short-term use and will be provided for surgical pain. Surgical pain usually lasts for a period of 4-6 weeks. Narcotic medication includes Percocet, Vicodin, Darvocet, Tylenol #3 or Lortab. 2. Longer-term pain is more appropriately treated with non-narcotic medication such as Tylenol ES. 3. Muscle spasm is not appropriately treated with narcotics. Muscle relaxers such as Soma, Flexeril or Skelaxin can be used along with Tylenol ES. 4. Remember that we all live with some "aches and pains". This is not unusual or uncommon after an injury or as we get older. a. Back pain is expected and may include muscle spasms for 4 to 6 weeks after surgery. The pain should gradually improve. If the pain worsens for no apparent reason, please contact the office. b. Intermittent leg pain may also be experienced and should not be concerned about unless it worsens for no apparent reason. If so, please contact the office. 5. We will provide appropriate medication within the normal guidelines of their prescribed use. We will also be very cautious and aware of potential abuse and extended duration of patients' medication needs. a. Pain medications are for your comfort and to assist with sleep and rest so that the tissue can heal. They are not provided in order to return to normal activity and should not be used through the day. To do so or worsening pain at night can result from ongoing tissue damage and development of tolerance to the prescribed medicine. 6. Please allow 2-3 days to process refills. Prescriptions will not be mailed but must be picked up at the office. FOLLOW UP VISIT: Keep your scheduled follow-up appointment. Any questions, please call the office at . Pending Studies at Discharge: No [facility], Smoking Cessation Medications and DC Order Prescriptions: New tramadol 50 mg tablet 50 mg PO Q6H PRN (Reason: pain, moderate) Qty: 30 RF: 0 oxycodone 5 mg tablet 5 mg PO Q6H PRN (Reason: pain, severe) Qty: 30 RF: 0 Continued omeprazole 40 mg Capsule,Delayed Release(Dr/Ec) 20 mg PO QAM RF: 0 lorazepam [Ativan] 0.5 mg Tablet 0.5 mg PO HS PRN (Reason: Sleep) RF: 0 ropinirole 2 mg Tablet Extended Release 24 Hr 2 mg PO QAM RF: 0 venlafaxine 150 mg Tablet Extended Release 24hr 150 mg PO QAM RF: 0 baclofen 5 mg Tablet 5 mg PO HS RF: 0 hydrocodone-acetaminophen 5-325 mg tablet 1 tab PO HS RF: 0 famotidine [Pepcid] 20 mg Tablet 20 mg PO BID RF: 0 losartan 25 mg Tablet 25 mg PO QAM RF: 0 cetirizine 10 mg Tablet 10 mg PO QAM RF: 0 melatonin 5 mg Tablet 5 mg PO HS RF: 0 cholecalciferol (vitamin D3) [Vitamin D3] 50 mcg (2,000 unit) Tablet 50 mcg PO QAM RF: 0 acetaminophen 500 mg Capsule 1,000 mg PO Q6H PRN (Reason: Pain) RF: 0 rosuvastatin [Crestor] 10 mg tablet 10 mg PO HS RF: 0 Discharge Orders: Discharge Order (Routine); Ordered 01/01/21 Ordered By: Blayne Baldwin Admission Data Admit Date/Time: 12/30/20 12:27 Attending Provider: Blayne Baldwin Admit Provider: Blayne Baldwin Primary Care Provider: Jerzy Lindo Other Providers: Umm Gonzalez
== END 2021-01-01 16:46 | disposition home or self-care (01) | DRG 455 ==
LOC: ASU 07:51 → 3E 12:27

== ENCOUNTER 2022-02-16 20:22 | Observation (INO) ==
[2022-02-16] MEDS ORDERED: ONDANSETRON INJ 2 MG/ML 2 ML VIAL IV STA (20:31)
[2022-02-16] MEDS ORDERED: SODIUM CHLORIDE 0.9% 500 ML IV STA (20:31)
[2022-02-16] MEDS ORDERED: SODIUM CHLORIDE 0.9% 1000ML 1,000 ML IV STA (20:31)
[2022-02-16] MEDS ORDERED: MoRPHine SULFATE 4 MG/ML 1 ML CARP\\VIAL IV PRN (20:51)
[2022-02-16 21:16] LABS: Basophils # (auto) 0.07 K/uL (0-0.2); Basophils % (auto) 0.7 %; Eosinophils # (auto) 0.11 K/uL (0-0.50); Eosinophils % (auto) 1.2 %; Hemoglobin 14.9 g/dl (12.0-16.0); Immature Granulocytes # (auto) 0.04 K/uL (0.00-0.02); Immature Granulocytes % (auto) 0.4 %; Lymphocytes # (auto) 2.06 K/uL (1.2-3.4); Lymphocytes % (auto) 21.9 %; Mean Corpuscular Hemoglobin 32.3 pg (25.0-34.0); Mean Corpuscular Hgb Conc 33.9 g/dL (32.0-36.0); Mean Corpuscular Volume 95.2 fL (80.0-100.0); Mean Platelet Volume 10.3 fL (9.4-12.3); Monocytes # (auto) 0.68 K/uL (0.24-0.82); Monocytes % (auto) 7.2 %; Neutrophils # (auto) 6.43 K/uL (1.4-6.5); Neutrophils % (auto) 68.6 %; Platelet Count 242 K/uL (130-400); RDW Coefficient of Variation 12.2 % (11.5-14.5); RDW Standard Deviation 42.9 fL (36.4-46.3); Red Blood Count 4.62 M/uL (3.93-5.22); White Blood Count 9.39 K/ul (4.8-10.8)
[2022-02-16 21:21] LABS: Appearance Urine Cloudy (Clear); Bacteria Urine Automated 1+ (Negative); Bilirubin Urine Negative (Negative); Blood Urine Negative (Negative); Color Urine Yellow; Epithelial Cell Urine Auto >30 /lpf (0-5); Glucose Urine UA Negative (Negative); Ketones Urine Negative (Negative); Leukocyte Esterase Urine 1+ (Negative); Nitrite Urine Negative (Negative); Protein Urine Negative (Negative); Specific Gravity Urine 1.019 (1.000-1.030); Urobilinogen Urine Negative (Negative)
--- NOTE | 2022-02-16 21:27 | Emergency Department Note ---
Impression & Plan Nausea, vomiting, and diarrhea, Acute upper abdominal pain ED Provider Note INFORMANT: Patient ED PROVIDER(S): Juanito Caban MD CHIEF COMPLAINT: Abdominal pain PLAN: Disposition: Admitted Condition: Good Outpatient prescription management: none Referral: None MEDICAL DECISION MAKING: Patient presented to emergency room complaining of vomiting and upper abdominal pain. She had also noted some diarrhea. She was concerned because she has a history of stones in her gallbladder. I did obtain old records and ultrasound from August of this year did reveal multiple gallstones without evidence of cholecystitis. She was treated with IV saline, morphine, and Zofran. On reassessment she felt better with regards to pain control. Patient underwent CT imaging that showed significant cholelithiasis without other acute pathology. She had a questionable urinalysis but had no significant urinary symptoms. Stool testing was ordered but she did not provide a sample. The patient un derwent ultrasound imaging and she has significant cholelithiasis without definitive evidence of cholecystitis. On reassessment she was still feeling very nauseated and uncomfortable. She notes this is the worst episode she has ever had regarding this type of presentation. I discussed options for inpatient and outpatient. Patient feels more comfortable staying. Consultation was made with the [facility] Hospitalist service. Patient was evaluated in the ER and admitted for further management Triage Nursing notes reviewed and agree them. Vital Signs: reviewed and remarkable for no significant abnormalities Differential diagnosis: Etiologies such as gastroenteritis, food borne illness, infections, appendicitis, diverticulitis, inflammatory bowel disease, GI bleed, biliary pathology, as well as others were entertained. Diagnostics interpreted by me: ECG: none Cardiac Monitoring: Cardiac monitoring ordered by me: The patient was placed on continuous cardiac monitoring and observed. It revealed a normal sinus rhythm at 95 beats per minute without ectopy or evidence of dysrhythmia. Imaging studies: CT scan and ultrasound reveals findings consistent with cholelithiasis. No evidence of cholecystitis per stat rad. I refer you to the EMR for further details. HPI: The patient is a 61year old female who presents to the Emergency Room with complaints of abdominal pain. This started about 24 hours ago and is in the upper abdomen. The patient also notes the following associated symptoms, nausea, vomiting, diarrhea. Pain is located in the upper abdomen. The patient has found no relieving factors. Current pain is rated as 6/10. Pt denies LOC, headache, fevers, chills, diaphoresis, visual changes, neck pain, chest pain, breathing difficulties, back pain, melena, hematochezia, urinary symptoms, numbness, weakness, lymphadenopathy, rash, or other complaints. ROS: See above HPI for pertinent positives & negatives. A total of 10 systems reviewed and were otherwise negative. PAST MEDICAL HISTORY:See Below , UTI, hypertension PAST SURGICAL HISTORY:See Below, FAMILY HISTORY:See Below SOCIAL HISTORY:See Below, non-smoker HOME MEDICATIONS:See Below ALLERGIES:See Below VITALS:See Below PHYSICAL EXAMINATION: GENERAL: Awake, alert, uncomfortable-appearing, in no distress HENT: Normocephalic, atraumatic. Oropharynx unremarkable. EYES: Normal conjunctiva. Sclera non-icteric. NECK: Inspection normal. Non-tender. Supple. No nuchal rigidity. FROM. No masses. RESPIRATORY: Clear to auscultation. No wheezes. No rales. Normal respiratory effort. CARDIAC: Normal rate. Normal rhythm. No murmurs. No rubs. Extremities warm and well perfused. Pulses equal. No JVD. GI: Soft, non-distended. Mild left and moderate right upper quadrant mild left and moderate right upper quadrant tenderness to palpation. No rebound or guarding. No masses. RECTAL: Deferred. MUSCULOSKELETAL: Atraumatic. Chest examination reveals no tenderness. The back is symmetrical on inspection without obvious abnormality. There is no CVA tenderness to palpation. No joint edema. LOWER EXTREMITIES: Calves are equal size bilaterally and non-tender. No edema. No discoloration. NEURO: Normal sensorium. No sensory or motor deficits noted. SKIN: No rash or jaundice noted. Juanito Caban MD Past Med/Surg History Medical History (Updated 02/16/22 @ 21:31 by Juanito Caban MD) Anxiety Barretts esophagus Colles' fracture Degenerative disc disease Depression Diastolic dysfunction GERD (gastroesophageal reflux disease) controlled Hiatal hernia Hyperlipidemia Hypertension Lumbar stenosis with neurogenic claudication Multiple sclerosis Follows with [facility] neurology, stable Nocturnal hypoxia 2 LPM at HS Osteoarthritis Periodic limb movement Thyroid nodule under surveillance UTI (urinary tract infection) Hx recurrent Surgical History Fusion of spine L4-5 and S1 History of bilateral tubal ligation History of colonoscopy History of esophagogastroduodenoscopy (EGD) Perirectal abscess resolved> surgery x2 [place] teeth extracted Family History Grandfather Diabetes Social History Smoking Status: Never smoker Second Hand Exposure: No; Hx Alcohol Use: Yes Alcohol type: beer, wine and hard liquor Hx Substance Use: Yes Last Used Substance Other:: medical marijuana oil > weekly Preferred Language: Portuguese Communication Ability: Effective Licensed Prosthetist Required: No Beliefs That Will Affect Care: None marital status: Current Living Situation: Spouse Feels Safe at Home: Yes Assistive Devices: Glasses and Walker Allergies Allergies Allergy/AdvReac Type Severity Reaction Status Date / Time bee venom protein (honey bee) Allergy Severe Anaphylaxis Verified 12/30/20 08:26 clonazepam Allergy Mild Rash Verified 12/30/20 08:26 cephalexin Allergy Unknown Unknown Verified 12/30/20 08:26 Cephalosporins Allergy Unknown Unknown Verified 12/30/20 08:26 gabapentin Allergy Unknown Unknown Verified 12/30/20 08:26 sulfamethoxazole Allergy Unknown Unknown Verified 12/30/20 08:26 [From Bactrim] trimethoprim [From Bactrim] Allergy Unknown Unknown Verified 12/30/20 08:26 Home Meds Home Medications Medication Instructions Recorded Confirmed baclofen 5 mg tablet 5 mg PO HS 11/29/18 12/09/20 lorazepam 0.5 mg tablet (Ativan) 0.5 mg PO HS PRN Sleep 11/29/18 12/09/20 omeprazole 40 mg capsule,delayed 20 mg PO QAM 11/29/18 12/09/20 release ropinirole 2 mg tablet,extended 2 mg PO QAM 11/29/18 12/30/20 release 24 hr venlafaxine 150 mg tablet,extended 150 mg PO QAM 11/29/18 12/09/20 release 24 hr famotidine 20 mg tablet (Pepcid) 20 mg PO BID 05/10/20 12/30/20 hydrocodone 5 mg-acetaminophen 325 1 tab PO HS 05/10/20 12/09/20 mg tablet rosuvastatin 10 mg tablet (Crestor) 10 mg PO HS 10/16/20 12/09/20 cetirizine 10 mg tablet 10 mg PO QAM 12/09/20 12/30/20 cholecalciferol (vitamin D3) 50 50 mcg PO QAM 12/09/20 12/30/20 mcg (2,000 unit) tablet (Vitamin D3) losartan 25 mg tablet 25 mg PO QAM 12/09/20 12/30/20 melatonin 5 mg tablet 5 mg PO HS 12/09/20 12/30/20 acetaminophen 500 mg capsule 1,000 mg PO Q6H PRN Pain 12/30/20 12/30/20 Previous Rx's Medication Instructions Recorded oxycodone 5 mg tablet 5 mg PO Q6H PRN pain, severe #30 01/01/21 tabs tramadol 50 mg tablet 50 mg PO Q6H PRN pain, moderate 01/01/21 #30 tabs Results & Data (ED) Vital Signs Vital Signs - 24 hr 02/16/22 20:23 Temperature 35.3 C L Temperature Source Temporal Artery Scan Pulse Rate 74 Respiratory Rate 18 Respiratory Effort / Characteristics Non-Labored Spontaneous Respiratory Depth Normal Blood Pressure 125/84 Blood Pressure Mean 97 Blood Pressure Position Sitting Pulse Oximetry 97 Oxygen Delivery Method Room Air Sepsis Recent Fever Within 48 Hours No Sepsis New/Unexplained Change in Mental Status N/A Sepsis Action Taken by Nursing No Action Required Laboratory Data Result diagrams: 02/16/22 21:05 02/16/22 21:05 Lab Results 02/16/22 02/16/22 02/16/22 Range/Units 21:00 21:05 21:05 WBC 9.39 (4.8-10.8) K/ul RBC 4.62 (3.93-5.22) M/uL Hgb 14.9 (12.0-16.0) g/dl Hct 44.0 (34.1-44.9) % MCV 95.2 (80.0-100.0) fL MCH 32.3 (25.0-34.0) pg MCHC 33.9 (32.0-36.0) g/dL RDW Std Deviation 42.9 (36.4-46.3) fL RDW Coeff of Rolando 12.2 (11.5-14.5) % Plt Count 242 (130-400) K/uL MPV 10.3 (9.4-12.3) fL Immature Gran % (Auto) 0.4 % Neut % (Auto) 68.6 % Lymph % (Auto) 21.9 % Ida % (Auto) 7.2 % Eos % (Auto) 1.2 % Baso % (Auto) 0.7 % Neut # (Auto) 6.43 (1.4-6.5) K/uL Lymph # (Auto) 2.06 (1.2-3.4) K/uL Ida # (Auto) 0.68 (0.24-0.82) K/uL Eos # (Auto) 0.11 (0-0.50) K/uL Baso # (Auto) 0.07 (0-0.2) K/uL Immature Gran # (Auto) 0.04 H (0.00-0.02) K/uL Sodium 139 (136-145) mmol/L Potassium 3.7 (3.5-5.1) mmol/L Chloride 104 (98-107) mmol/L Carbon Dioxide 24 (21-32) mmol/L Anion Gap 11 (3-11) BUN 17 (6-23) mg/dl Creatinine 0.75 (0.6-1.2) mg/dl Est Cr Clr Drug Dosing 85.0 ml/min Est GFR ( Amer) 98.3 ml/min Est GFR (Non-Af Amer) 84.8 ml/min BUN/Creatinine Ratio 22.7 H (10-20) Glucose 111 H (70-99(Fasting)) mg/dl Calcium 10.3 H (8.5-10.1) mg/dl Total Bilirubin 0.8 (0.2-1.0) mg/dl AST 16 (13-39) U/L ALT 17 (7-52) U/L Alkaline Phosphatase 117 H (34-104) U/L Total Protein 7.3 (6.0-8.3) gm/dl Albumin 4.5 (3.4-5.0) gm/dl Globulin 2.8 (2.5-4.0) gm/dl Albumin/Globulin Ratio 1.6 (0.9-2) Lipase 24 (11-82) U/L Urine Color Yellow Urine Appearance Cloudy A (Clear) Urine pH 7.0 (4.5-7.5) Ur Specific [place] 1.019 (1.000-1.030) Urine Protein Negative (Negative) Urine Glucose (UA) Negative (Negative) Urine Ketones Negative (Negative) Urine Blood Negative (Negative) Urine Nitrite Negative (Negative) Urine Bilirubin Negative (Negative) Urine Urobilinogen Negative (Negative) Ur Leukocyte Esterase 1+ H (Negative) Urine WBC (Auto) 5-10 H (0-5) /hpf Urine RBC (Auto) 5-10 H (0-4) /hpf U Hyaline Cast (Auto) 1-5 (0-5) /lpf U Epithel Cells (Auto) >30 H (0-5) /lpf Urine Bacteria (Auto) 1+ H (Negative) SARS-CoV-2 (PCR) (Negative) 02/16/22 Range/Units Unknown WBC (4.8-10.8) K/ul RBC (3.93-5.22) M/uL Hgb (12.0-16.0) g/dl Hct (34.1-44.9) % MCV (80.0-100.0) fL MCH (25.0-34.0) pg MCHC (32.0-36.0) g/dL RDW Std Deviation (36.4-46.3) fL RDW Coeff of Rolando (11.5-14.5) % Plt Count (130-400) K/uL MPV (9.4-12.3) fL Immature Gran % (Auto) % Neut % (Auto) % Lymph % (Auto) % Ida % (Auto) % Eos % (Auto) % Baso % (Auto) % Neut # (Auto) (1.4-6.5) K/uL Lymph # (Auto) (1.2-3.4) K/uL Ida # (Auto) (0.24-0.82) K/uL Eos # (Auto) (0-0.50) K/uL Baso # (Auto) (0-0.2) K/uL Immature Gran # (Auto) (0.00-0.02) K/uL Sodium (136-145) mmol/L Potassium (3.5-5.1) mmol/L Chloride (98-107) mmol/L Carbon Dioxide (21-32) mmol/L Anion Gap (3-11) BUN (6-23) mg/dl Creatinine (0.6-1.2) mg/dl Est Cr Clr Drug Dosing ml/min Est GFR ( Amer) ml/min Est GFR (Non-Af Amer) ml/min BUN/Creatinine Ratio (10-20) Glucose (70-99(Fasting)) mg/dl Calcium (8.5-10.1) mg/dl Total Bilirubin (0.2-1.0) mg/dl AST (13-39) U/L ALT (7-52) U/L Alkaline Phosphatase (34-104) U/L Total Protein (6.0-8.3) gm/dl Albumin (3.4-5.0) gm/dl Globulin (2.5-4.0) gm/dl Albumin/Globulin Ratio (0.9-2) Lipase (11-82) U/L Urine Color Urine Appearance (Clear) Urine pH (4.5-7.5) Ur Specific [place] (1.000-1.030) Urine Protein (Negative) Urine Glucose (UA) (Negative) Urine Ketones (Negative) Urine Blood (Negative) Urine Nitrite (Negative) Urine Bilirubin (Negative) Urine Urobilinogen (Negative) Ur Leukocyte Esterase (Negative) Urine WBC (Auto) (0-5) /hpf Urine RBC (Auto) (0-4) /hpf U Hyaline Cast (Auto) (0-5) /lpf U Epithel Cells (Auto) (0-5) /lpf Urine Bacteria (Auto) (Negative) SARS-CoV-2 (PCR) NEGATIVE (Negative) Administered Medications Sodium Chloride (Nss 1000ml) 1,000 mls @ 125 mls/hr IV .Q8H STA Stop: 02/17/22 04:30 Last Admin: 02/16/22 22:35 Dose: 125 mls/hr Documented By: JESSICA Morphine Sulfate (Morphine Sulfate 4 Mg/Ml 1 Ml Carp\Vial) 4 mg IV Q15M PRN PRN Reason: Pain Stop: 03/02/22 20:50 Last Admin: 02/16/22 21:17 Dose: 4 mg Documented By: JESSICA Discontinued Medications Sodium Chloride (Nss) 500 mls @ 999 mls/hr IV .Q31M STA Stop: 02/16/22 21:01 Last Infusion: 02/16/22 22:35 Dose: 0 mls/hr Documented By: Admin: 02/16/22 21:14 Dose: 999 mls/hr Documented By: JESSICA Ondansetron HCl (Ondansetron Inj 2 Mg/Ml 2 Ml Vial) 4 mg IV NOW STA Stop: 02/16/22 20:32 Last Admin: 02/16/22 21:14 Dose: 4 mg Documented By: JESSICA Discharge Plan Visit Data Chief Complaint: Abdominal Pain Stated Complaint: ABDOMINAL PAIN, VOMITING, NAUSEA ED Provider: Juanito Caban Discharge Problem: Nausea, vomiting, and diarrhea, Acute upper abdominal pain Forms Stand Alone Forms: [facility] Prescriptions Prescriptions: No Action omeprazole 40 mg Capsule,Delayed Release(Dr/Ec) 20 mg PO QAM lorazepam [Ativan] 0.5 mg Tablet 0.5 mg PO HS PRN (Reason: Sleep) ropinirole 2 mg Tablet Extended Release 24 Hr 2 mg PO QAM venlafaxine 150 mg Tablet Extended Release 24hr 150 mg PO QAM baclofen 5 mg Tablet 5 mg PO HS hydrocodone-acetaminophen 5-325 mg tablet 1 tab PO HS famotidine [Pepcid] 20 mg Tablet 20 mg PO BID losartan 25 mg Tablet 25 mg PO QAM cetirizine 10 mg Tablet 10 mg PO QAM melatonin 5 mg Tablet 5 mg PO HS cholecalciferol (vitamin D3) [Vitamin D3] 50 mcg (2,000 unit) Tablet 50 mcg PO QAM acetaminophen 500 mg Capsule 1,000 mg PO Q6H PRN (Reason: Pain) tramadol 50 mg tablet 50 mg PO Q6H PRN (Reason: pain, moderate) Qty: 30 0RF oxycodone 5 mg tablet 5 mg PO Q6H PRN (Reason: pain, severe) Qty: 30 0RF rosuvastatin [Crestor] 10 mg tablet 10 mg PO HS Referrals Referrals: Teresa Luke MD [Primary Care Provider] -
[2022-02-16 21:36] LABS: Albumin Globulin Ratio 1.6 (0.9-2); Albumin Level 4.5 gm/dl (3.4-5.0); BUN Creatinine Ratio 22.7 (10-20); Bilirubin,Total 0.8 mg/dl (0.2-1.0); Calcium 10.3 mg/dl (8.5-10.1); Est GFR (African American) 98.3 ml/min; Est GFR (Non-African American) 84.8 ml/min; Globulin 2.8 gm/dl (2.5-4.0); Potassium 3.7 mmol/L (3.5-5.1); Total Protein 7.3 gm/dl (6.0-8.3)
[2022-02-16] MEDS ORDERED: METOCLOPRAMIDE HCL INJ 5 MG/ML 2 ML VIAL IV ONE (23:51)
[2022-02-17] MEDS ORDERED: diphenhydrAMINE 50 MG/ML VIAL ONE
[2022-02-17] MEDS ORDERED: BACLOFEN 10 MG TAB PO STA (01:03)
[2022-02-17] MEDS ORDERED: ONDANSETRON INJ 2 MG/ML 2 ML VIAL IV PRN ×2 (01:49→19:01)
[2022-02-17] MEDS ORDERED: ACETAMINOPHEN 1,000 MG/100 ML VIAL IV PRN ×2 (01:49→21:14)
[2022-02-17] MEDS ORDERED: LORazepam 0.5 MG TAB PO PRN (01:49)
[2022-02-17] MEDS ORDERED: ACETAMINOPHEN 325 MG TAB PO PRN (01:49)
[2022-02-17] MEDS: D5W AND 1/2NSS 1,000 ML IV SCH ×3 (02:57→14:19)
[2022-02-17] MEDS: CIPROFLOXACIN / D5W 400 MG/200 ML BAG IV SCH ×2 (03:13→15:10)
--- NOTE | 2022-02-17 03:38 | History and Physical Report ---
DATE OF ADMISSION: 02/17/2018. CHIEF COMPLAINT: Nausea, vomiting, abdominal pain. HISTORY OF PRESENT ILLNESS: A 61-year-old female with past medical history significant for hyperlipidemia, allergic rhinitis, pulmonary nodule, nocturnal hypoxemia, hypertension, GERD, Stone's esophagus, restless legs syndrome, lumbar degenerative disc disease, multiple sclerosis, history of coccydynia, history of toxic effect of venom, depression, history of medical marijuana use, presents with abdominal pain, nausea, vomiting. The patient states since yesterday evening, she is having like a bubble-like feeling in her epigastric region with abdominal discomfort, a lot of nausea, vomiting, not able to eat anything and having some pain in the right upper quadrant region also. She gets this often, but lately getting more frequently. It is not getting better, so she came to the hospital. Has some headache. No blurred visions, no runny nose, no sore throat, no cough, no fevers, except the pain in the epigastric region no chest pain, no shortness of breath. Normal bowel and bladder movements. Currently, denies any blood in the urine. She says she has frequent UTIs because of her MS, but denies any burning micturition, no swelling in the legs. She has ambulatory dysfunction. ALLERGIES: BEE VENOM, CLONAZEPAM, KEFLEX, CEPHALOSPORINS, GABAPENTIN, BACTRIM. PAST MEDICAL HISTORY: As mentioned above. PAST SURGICAL HISTORY: Anal fistula surgery, colonoscopy, drainage of rectal abscess, EGDs, EGD with biopsy, ligation of oviducts, lumbar spine fusion surgery. MEDICATIONS: As per [facility], the patient is on metoprolol succinate 12.5 mg p.o. at bedtime, Protonix 40 mg p.o. daily, Adderall 10 mg p.o. b.i.d., hydrocodone/acetaminophen 1 tablet p.o. q. 8 hours p.r.n. for pain, lorazepam 0.5 mg p.o. t.i.d. p.r.n., dalfampridine ER 10 mg p.o. b.i.d., ropinirole 2 mg p.o. daily, venlafaxine 150 mg p.o. daily, lovastatin 10 mg p.o. daily, losartan 25 mg p.o. daily, baclofen 10 mg p.o. at bedtime, famotidine 20 mg p.o. b.i.d., cetirizine 10 mg p.o. daily, vitamin D 50 mcg p.o. daily, magnesium oxide 400 mg p.o. daily. FAMILY HISTORY: Significant for mother has allergies, arthritis, heart disorder, hypertension, stroke, valvular heart disease. Father has a bowel obstruction, colon polyps, stroke. Maternal grandfather has diabetes. Maternal grandmother has liver cancer. Maternal grandfather had a stroke. SOCIAL HISTORY: . No smoking. Alcohol moderate. Marijuana 2 times per week, medical marijuana. REVIEW OF SYSTEMS: As per HPI. Rest of review of systems is negative. PHYSICAL EXAMINATION: GENERAL: The patient is of moderate build, not in acute distress. VITAL SIGNS: Temperature 37.3, pulse 84, respiratory rate 22, blood pressure 95/70, oxygen 94% on room air. HEENT: Pupils equal, round and reactive to light. Oral mucosa moist. NECK: No JVD, no neck masses. CARDIOVASCULAR: S1 and S2 heard. Regular rate and rhythm. No murmur, no gallop. RESPIRATORY SYSTEM: Normal AP diameter. No accessory muscle use. No wheezing, no crackles. ABDOMEN: Soft, bowel sounds present. Mild tenderness in the epigastric and right upper quadrant region. No guarding, no rigidity, no distention. CENTRAL NERVOUS SYSTEM: Cranial nerves II through XII are grossly intact, nonfocal. EXTREMITIES: No edema, no erythema. LABORATORY DATA: WBC 9.3, hemoglobin 14.9, hematocrit 44, platelets 242. Sodium 139, potassium 3.7, chloride 104, bicarbonate 24, BUN 17, creatinine 0.7, serum glucose 111, calcium 10.3, total bilirubin 0.8, AST 16, ALT 17, alkaline phosphatase 117, lipase 25. Urinalysis, +1 leukocyte esterase, +1 bacteria. SARS-CoV-2 rapid test negative. IMAGING DATA: Gallbladder ultrasound shows gallstones on the preliminary report. CT abdomen and pelvis, preliminary report shows multiple cysts within the liver, the largest measuring 2.2 cm, multiple definite subcentimeter gallstones are seen. ASSESSMENT AND PLAN: This is a 61-year-old female who presents with abdominal pain, nausea, vomiting. 1. Abdominal pain, nausea, vomiting, epigastric uncomfort feeling, history of Stone's esophagus. Place him on IV Protonix b.i.d. We will keep him n.p.o., IV antiemetics, IV fluids. Consult GI in the a.m. 2. Gallstones. Because of persistent nausea and vomiting, we will do HIDA scan. On gallbladder ultrasound and CT scan no obvious cholecystitis.To follow final reports. 3. Urinary tract infection. The patient has history of recurrent urinary tract infections because of her multiple sclerosis. The patient is allergic to CEPHALOSPORINS and BACTRIM. We will place her on Cipro and follow the cultures. 4. History of restless leg syndrome, currently on ropinirole. 5. History of depression/anxiety, on venlafaxine and Adderall, Ativan p.r.n. 6. History of hypertension: On metoprolol succinate and losartan. Will monitor the blood pressure. 7. History of multiple sclerosis, currently not taking any medications. Follow up with neurology. 8. Deep venous thrombosis prophylaxis: Sequential compression devices for now. DISPOSITION: Closely monitor in the medical floor. PT/OT prior to discharge. Social service to help with discharge planning. Job ID: [id number] [facility] CENTERMackenzie
--- NOTE | 2022-02-17 06:55 | Ultrasound Report ---
US gallbladder HISTORY: 61 years-old Female vomiting, pain, CT with stones acute right upper quadrant abdominal milady n with nausea and vomiting COMPARISON: CT abdomen and pelvis of same day TECHNIQUE: Multiple real-time sonographic images of the abdominal right upper quadrant were obtained assessing grayscale appearance and color flow FINDINGS: The pancreas is obscured by bowel gas. Numerous hepatic cysts measure up to approximately 3.2 cm. Mildly increased echogenicity of the hepat ic parenchyma suggestive of hepatic steatosis. No solid mass identified. The liver measures up to 16. 2 cm in length. Stone filled gallbladder with mild distention. No gallbladder wall thickening or pericholecystic flui d identified. Negative sonographic Mcclure's sign. Normal common bile duct, 2 mm. The imaged right kid jean is unremarkable without hydronephrosis. IMPRESSION: 1. Mild gallbladder distention with cholelithiasis. There is no gallbladder wall thickening or perich olecystic fluid identified to suggest acute cholecystitis. Findings could be correlated with nuclear medicine hepatobiliary scan. 2. No biliary ductal dilation. 3. Hepatic steatosis with hepatic cysts. ACT 112: Negative or not required by law. The above report was generated using voice recognition software. It may contain grammatical, syntax o r spelling errors. Electronically signed by: Nadir Joy M.D. 02/17/2022 6:53 AM
--- NOTE | 2022-02-17 07:42 | CT Scan Report ---
ABDOMEN AND PELVIS CT WITHOUT CONTRAST CT DOSE: 907.29 mGy.cm HISTORY: upper abd pain, vomiting TECHNIQUE: Multiaxial CT images of the abdomen and pelvis were performed without contrast. A dose lo wering technique was utilized adhering to the principles of ALARA. COMPARISON STUDY: Abdomen and pelvis CT 02/26/2016. FINDINGS: Posterior decompression and fusion at L3-L4 with pedicle screws and rods. Evidence for prio r pedicle screw removal at L5. Bibasilar linear and groundglass densities favor subsegmental atelecta sis/dependent change. No pneumoperitoneum. No pneumatosis. No fractures within the visualized osseous structures. The bladder, uterus, bilateral adnexa are unremarkable. No pelvic free fluid. Suboptimal evaluation for bowel pathology due to the lack of intravenous and oral contrast. However, there is n o definite bowel wall thickening or obstruction. Normal appendix. Colonic diverticulosis. No evidence for acute diverticulitis. A few scattered hypodense lesions again noted within the liver measuring u p to 2 cm. These remain stable and likely represent cysts. Multiple small gallstones. No gallbladder wall thickening. The unenhanced pancreas, spleen, and adrenal glands are unremarkable. No renal or ur eteral stones. No hydronephrosis. There is a 4.7 cm cyst within the upper pole the left kidney. Saundra l caliber abdominal aorta. No retroperitoneal lymphadenopathy. IMPRESSION: 1. Cholelithiasis. No gallbladder wall thickening. 2. Colonic diverticulosis. No evidence for acute diverticulitis. 3. No bowel wall thickening or obstruction. 4. Normal appendix. 5. Additional findings as described above. ACT 112: Negative or not required by law. Electronically signed by: Shaun Webber M.D. 02/17/2022 7:40 AM
[2022-02-17] MEDS ORDERED: SINCALIDE 1.8 MCG in 0.9 % SODIUM CHLORIDE 100 ML IV SCH (08:00)
--- NOTE | 2022-02-17 08:44 | Gastrointestinal Consultation ---
Date of Consultation February 17, 2022 Assessment & Plan (1) Nausea, vomiting, and diarrhea: 61 year old female with MS admitted with abd pain, nausea, vomiting. She is on ABX for a UTI. CT, ABD US reviewed No evidence of biliary pathology Will review HIDA once available PO PPI once daily Thank you for allowing us to participate in the care of this patient. Please call with any acute changes, questions or concerns. Please see addendum below with additional recommendation from my supervising physician. Supervising Physician Co-Signing Physician Notes I performed a history and physical examination of the patient today, including specifically on physical exam - soft abdomen. I have discussed the patient's management with the advanced practitioner. Please refer to the nurse practitioner's note for the documented findings and plan of care. HIDA with low EF, she also had gallstones. This may explain her pain. LFTs normal. Surgery consult for cholecystectomy. Recall GI if needed. History of Present Illness Reason for Consultation: abd pain, nausea, vomiting Requesting Physician: Breonna Attending Physician: Srinivas Ravi MD History of Present Illness 61 year old female with history of MS, HTN admitted with abd pain, nausea, vomiting. GI was asked to evaluated. I attempted to evaluate the pt x 3. However, she was not in room. Chart reviewed. Presenting with abd pain, nausea, vomiting. CBC stable, ALKP elevated 117, otherwise LFTs normal. Lipase normal. ABD US 2021: Mild gallbladder distention with cholelithiasis. There is no gallbladder wall thickening or pericholecystic fluid identified to suggest acute cholecystitis. Findings could be correlated with nuclear medicine hepatobiliary scan.. No biliary ductal dilation.. Hepatic steatosis with hepatic cysts. CTAP 2021: Cholelithiasis. No gallbladder wall thickening.. Colonic diverticulosis. No evidence for acute diverticulitis.. No bowel wall thickening or obstruction. Normal appendix. Allergies Allergy/AdvReac Type Severity Reaction Status Date / Time bee venom protein (honey bee) Allergy Severe Anaphylaxis Verified 12/30/20 08:26 clonazepam Allergy Mild Rash Verified 12/30/20 08:26 cephalexin Allergy Unknown Unknown Verified 12/30/20 08:26 Cephalosporins Allergy Unknown Unknown Verified 12/30/20 08:26 gabapentin Allergy Unknown Unknown Verified 12/30/20 08:26 sulfamethoxazole Allergy Unknown Unknown Verified 12/30/20 08:26 [From Bactrim] trimethoprim [From Bactrim] Allergy Unknown Unknown Verified 12/30/20 08:26 Home Medications Medication Instructions Recorded Confirmed Type baclofen 5 mg tablet 10 mg PO HS 11/29/18 12/09/20 History lorazepam 0.5 mg tablet (Ativan) 0.5 mg PO HS PRN Sleep 11/29/18 12/09/20 History ropinirole 2 mg tablet,extended 2 mg PO QAM 11/29/18 12/30/20 History release 24 hr venlafaxine 150 mg tablet,extended 150 mg PO QAM 11/29/18 12/09/20 History release 24 hr famotidine 20 mg tablet (Pepcid) 20 mg PO BID 05/10/20 12/30/20 History rosuvastatin 10 mg tablet (Crestor) 10 mg PO HS 10/16/20 12/09/20 History cetirizine 10 mg tablet 10 mg PO QAM 12/09/20 12/30/20 History cholecalciferol (vitamin D3) 50 50 mcg PO QAM 12/09/20 12/30/20 History mcg (2,000 unit) tablet (Vitamin D3) losartan 25 mg tablet 25 mg PO QAM 12/09/20 12/30/20 History melatonin 5 mg tablet 5 mg PO HS 12/09/20 12/30/20 History dalfampridine 10 mg 10 mg PO BID 02/17/22 02/17/22 History tablet,extended release,12 hr dextroamphetamine-amphetamine 10 10 mg PO USEASDIRECTD 02/17/22 02/17/22 History mg tablet metoprolol succinate 25 mg 12.5 mg PO HS 02/17/22 02/17/22 History tablet,extended release 24 hr Patient History Medical History (Updated 02/16/22 @ 21:31 by Juanito Caban MD) Anxiety Barretts esophagus Colles' fracture Degenerative disc disease Depression Diastolic dysfunction GERD (gastroesophageal reflux disease) controlled Hiatal hernia Hyperlipidemia Hypertension Lumbar stenosis with neurogenic claudication Multiple sclerosis Follows with [facility] neurology, stable Nocturnal hypoxia 2 LPM at HS Osteoarthritis Periodic limb movement Thyroid nodule under surveillance UTI (urinary tract infection) Hx recurrent Surgical History Fusion of spine L4-5 and S1 History of bilateral tubal ligation History of colonoscopy History of esophagogastroduodenoscopy (EGD) Perirectal abscess resolved> surgery x2 [place] teeth extracted Family History Grandfather Diabetes Social History Smoking Status: Never smoker Second Hand Exposure: No; Hx Alcohol Use: Yes Alcohol type: beer, wine and hard liquor Hx Substance Use: Yes Last Used Substance Other:: medical marijuana oil > weekly Preferred Language: Qatari Communication Ability: Effective [employer] Required: No Beliefs That Will Affect Care: Adventist Adventist Beliefs: MU-ISM marital status: Current Living Situation: Spouse How many Children do You have: 2 Feels Safe at Home: Yes Safety Concerns: Feels Safe At This Time Assistive Devices: Cane Review of Systems Review of Systems: Unable to assess Physical Exam Physical Exam: Unable to assess Results & Data ([place]) Vital Signs (Past 12 Hours) Vital Signs Temp Pulse Resp BP Pulse Ox O2 Del Method 02/17/22 07:06 36.6 C 73 16 104/67 95 Room Air 02/17/22 01:35 36.7 C 82 16 114/76 95 Room Air 02/17/22 01:14 85 20 97/64 L 98 Room Air 02/17/22 00:06 85 22 95/72 L 94 Room Air Laboratory Results 02/16/22 02/16/22 02/16/22 Range/Units Unknown 21:05 21:05 WBC 9.39 (4.8-10.8) K/ul RBC 4.62 (3.93-5.22) M/uL Hgb 14.9 (12.0-16.0) g/dl Hct 44.0 (34.1-44.9) % MCV 95.2 (80.0-100.0) fL MCH 32.3 (25.0-34.0) pg MCHC 33.9 (32.0-36.0) g/dL RDW Std Deviation 42.9 (36.4-46.3) fL RDW Coeff of Rolando 12.2 (11.5-14.5) % Plt Count 242 (130-400) K/uL MPV 10.3 (9.4-12.3) fL Immature Gran % (Auto) 0.4 % Neut % (Auto) 68.6 % Lymph % (Auto) 21.9 % [place] % (Auto) 7.2 % Eos % (Auto) 1.2 % Baso % (Auto) 0.7 % Neut # (Auto) 6.43 (1.4-6.5) K/uL Lymph # (Auto) 2.06 (1.2-3.4) K/uL [place] # (Auto) 0.68 (0.24-0.82) K/uL Eos # (Auto) 0.11 (0-0.50) K/uL Baso # (Auto) 0.07 (0-0.2) K/uL Immature Gran # (Auto) 0.04 H (0.00-0.02) K/uL Sodium 139 (136-145) mmol/L Potassium 3.7 (3.5-5.1) mmol/L Chloride 104 (98-107) mmol/L Carbon Dioxide 24 (21-32) mmol/L Anion Gap 11 (3-11) BUN 17 (6-23) mg/dl Creatinine 0.75 (0.6-1.2) mg/dl Est Cr Clr Drug Dosing 85.0 ml/min Est GFR ( Amer) 98.3 ml/min Est GFR (Non-Af Amer) 84.8 ml/min BUN/Creatinine Ratio 22.7 H (10-20) Glucose 111 H (70-99(Fasting)) mg/dl Calcium 10.3 H (8.5-10.1) mg/dl Total Bilirubin 0.8 (0.2-1.0) mg/dl AST 16 (13-39) U/L ALT 17 (7-52) U/L Alkaline Phosphatase 117 H (34-104) U/L Total Protein 7.3 (6.0-8.3) gm/dl Albumin 4.5 (3.4-5.0) gm/dl Globulin 2.8 (2.5-4.0) gm/dl Albumin/Globulin Ratio 1.6 (0.9-2) Lipase 24 (11-82) U/L Urine Color Urine Appearance (Clear) Urine pH (4.5-7.5) Ur Specific [place] (1.000-1.030) Urine Protein (Negative) Urine Glucose (UA) (Negative) Urine Ketones (Negative) Urine Blood (Negative) Urine Nitrite (Negative) Urine Bilirubin (Negative) Urine Urobilinogen (Negative) Ur Leukocyte Esterase (Negative) Urine WBC (Auto) (0-5) /hpf Urine RBC (Auto) (0-4) /hpf U Hyaline Cast (Auto) (0-5) /lpf U Epithel Cells (Auto) (0-5) /lpf Urine Bacteria (Auto) (Negative) SARS-CoV-2 (PCR) NEGATIVE (Negative) 02/16/22 Range/Units 21:00 WBC (4.8-10.8) K/ul RBC (3.93-5.22) M/uL Hgb (12.0-16.0) g/dl Hct (34.1-44.9) % MCV (80.0-100.0) fL MCH (25.0-34.0) pg MCHC (32.0-36.0) g/dL RDW Std Deviation (36.4-46.3) fL RDW Coeff of Rolando (11.5-14.5) % Plt Count (130-400) K/uL MPV (9.4-12.3) fL Immature Gran % (Auto) % Neut % (Auto) % Lymph % (Auto) % [place] % (Auto) % Eos % (Auto) % Baso % (Auto) % Neut # (Auto) (1.4-6.5) K/uL Lymph # (Auto) (1.2-3.4) K/uL [place] # (Auto) (0.24-0.82) K/uL Eos # (Auto) (0-0.50) K/uL Baso # (Auto) (0-0.2) K/uL Immature Gran # (Auto) (0.00-0.02) K/uL Sodium (136-145) mmol/L Potassium (3.5-5.1) mmol/L Chloride (98-107) mmol/L Carbon Dioxide (21-32) mmol/L Anion Gap (3-11) BUN (6-23) mg/dl Creatinine (0.6-1.2) mg/dl Est Cr Clr Drug Dosing ml/min Est GFR ( Amer) ml/min Est GFR (Non-Af Amer) ml/min BUN/Creatinine Ratio (10-20) Glucose (70-99(Fasting)) mg/dl Calcium (8.5-10.1) mg/dl Total Bilirubin (0.2-1.0) mg/dl AST (13-39) U/L ALT (7-52) U/L Alkaline Phosphatase (34-104) U/L Total Protein (6.0-8.3) gm/dl Albumin (3.4-5.0) gm/dl Globulin (2.5-4.0) gm/dl Albumin/Globulin Ratio (0.9-2) Lipase (11-82) U/L Urine Color Yellow Urine Appearance Cloudy A (Clear) Urine pH 7.0 (4.5-7.5) Ur Specific [place] 1.019 (1.000-1.030) Urine Protein Negative (Negative) Urine Glucose (UA) Negative (Negative) Urine Ketones Negative (Negative) Urine Blood Negative (Negative) Urine Nitrite Negative (Negative) Urine Bilirubin Negative (Negative) Urine Urobilinogen Negative (Negative) Ur Leukocyte Esterase 1+ H (Negative) Urine WBC (Auto) 5-10 H (0-5) /hpf Urine RBC (Auto) 5-10 H (0-4) /hpf U Hyaline Cast (Auto) 1-5 (0-5) /lpf U Epithel Cells (Auto) >30 H (0-5) /lpf Urine Bacteria (Auto) 1+ H (Negative) SARS-CoV-2 (PCR) (Negative)
--- NOTE | 2022-02-17 09:31 | Nuclear Medicine Report ---
NUCLEAR MEDICINE HEPATOBILIARY SCAN WITH EJECTION FRACTION HISTORY: Nausea. Vomiting. Generalized abdominal Pain, gallstones COMPARISON: Abdominal ultrasound 02/16/2022. TECHNIQUE: Immediately following the intravenous administration of 5.4 mCi Tc-99m Choletec, dynamic a nterior abdominal imaging pre/post 1.8 mcg of Kinevac was performed. FINDINGS: Uniform hepatic tracer accumulation is shown. Prompt intrahepatic biliary excretion is seen. The gall bladder, common bile duct, and small bowel are all visualized by 50 minutes. This appearance represen ts the normal sequence of biliary excretion. The gall bladder ejection fraction following administration of Kinevac was 14% (normal >35%). IMPRESSION: 1. No evidence for cystic duct obstruction. 2. Abnormally low gallbladder ejection fraction calculated to be 14 %. ACT 112: Negative or not required by law. Electronically signed by: Shaun Webber M.D. 02/17/2022 9:30 AM
[2022-02-17] MEDS: LOSARTAN POTASSIUM 25 MG TAB PO SCH (09:58)
[2022-02-17] MEDS: CETIRIZINE HCL 10 MG TABLET PO SCH (09:58)
[2022-02-17] MEDS: VENLAFAXINE HCL XR 150 MG CAPXR PO SCH (09:58)
[2022-02-17] MEDS: AMPHETAMINE ASP/SULF/DEXTRAMPH 10 MG TAB PO SCH ×2 (10:08→14:20)
[2022-02-17] MEDS: PANTOprazole 40 MG in SYRINGE 0 ML IV SCH ×2 (10:47→21:18)
[2022-02-17 11:47] LABS: Basophils # (auto) 0.04 K/uL (0-0.2); Basophils % (auto) 0.7 %; Eosinophils # (auto) 0.12 K/uL (0-0.50); Hematocrit (blood only) 40.2 % (34.1-44.9); Hemoglobin 13.3 g/dl (12.0-16.0); Immature Granulocytes # (auto) 0.02 K/uL (0.00-0.02); Immature Granulocytes % (auto) 0.3 %; Lymphocytes # (auto) 1.58 K/uL (1.2-3.4); Lymphocytes % (auto) 26.9 %; Mean Corpuscular Hgb Conc 33.1 g/dL (32.0-36.0); Mean Corpuscular Volume 96.9 fL (80.0-100.0); Mean Platelet Volume 10.4 fL (9.4-12.3); Monocytes # (auto) 0.44 K/uL (0.24-0.82); Monocytes % (auto) 7.5 %; Neutrophils # (auto) 3.67 K/uL (1.4-6.5); Neutrophils % (auto) 62.6 %; Platelet Count 191 K/uL (130-400); RDW Coefficient of Variation 12.3 % (11.5-14.5); RDW Standard Deviation 43.7 fL (36.4-46.3); Red Blood Count 4.15 M/uL (3.93-5.22); White Blood Count 5.87 K/ul (4.8-10.8)
[2022-02-17 12:17] LABS: BUN Creatinine Ratio 19.4 (10-20); Bilirubin Direct 0.1 mg/dl (0-0.2); Bilirubin,Total 0.8 mg/dl (0.2-1.0); Creatinine Clr Calc Pharmacy 88.7 ml/min; Est GFR (African American) 103.3 ml/min; Est GFR (Non-African American) 89.1 ml/min; Magnesium 2.2 mg/dl (1.7-2.4); Potassium 4.2 mmol/L (3.5-5.1); Total Protein 6.4 gm/dl (6.0-8.3)
--- NOTE | 2022-02-17 12:54 | Electrocardiogram Report ---
Test Reason : Blood Pressure : / mmHG Vent. Rate : 087 BPM Atrial Rate : 087 BPM P-R Int : 170 ms QRS Dur : 098 ms QT Int : 428 ms P-R-T Axes : 047 -25 040 degrees QTc Int : 515 ms Poor data quality, interpretation may be adversely affected Normal sinus rhythm Low voltage QRS Prolonged QT Abnormal ECG When compared with ECG of 16-OCT-2020 19:53, Borderline criteria for Lateral infarct are no longer Present Confirmed by Gabe Marcial ([id number]) on 02/17/2022 12:53:52 PM Referred By: REFERRED SELF Confirmed By:Gabe Marcial
--- NOTE | 2022-02-17 13:54 | Surgery Consultation ---
Date of Consultation February 17, 2022 Assessment & Plan (1) Abnormal biliary HIDA scan: This is a 61yF with a PMH of MS, HTN, GERD, depression who presents to the [facility] ED on 02/16/22 with complaints of nausea/vomiting and abdominal pain. This has been on and off over the last year, however patient's symptoms have become more severe and constant over the last 2 days. Workup in the ER included a CT a/p that revealed + stones with no gallbladder wall thickening. An US was obtained that showed mild gallbladder distention with cholelithiasis without wall thickening or pericholecystic fluid identified to suggest acute cholecystitis. Follow up with a HIDA revealed an abnormally low gallbladder ejection fraction calculated to be 14 %. GI evaluated the patient and recommended surgical consultation given low EF on HIDA scan and symptoms likely related to gallbladder etiology. Currently patient is resting in bed, in no distress. Feeling some nausea, but overall improvement in her symptoms. Tolerated clear liquids for lunch. On exam patient's abdomen is soft, non distended, non tender. WBC normal & LFTs normal. No evidence for acute cholecystitis, although symptoms may be related to biliary dysfunction noted on HIDA scan. She prefers to have this taken care of while here as she has plans this upcoming fall. Will make patient NPO for now. We will discuss with the OR timing of procedure to see if we can perform laparoscopic cholecystectomy this evening. Patient is agreeable with the plan. As above. I do believe the gallbladder is the main etiology of her symptoms. We discussed there is no way to guarantee removing her gallbladder would improve all of her GI symptoms. We discussed conservative management and scheduling her electively as an outpatient. She is not interested in leaving with the current symptoms and would like to have her gallbladder removed this admission. We discussed risks which include bleeding, infection, injury to another organ, injury to a bile duct or bile leak, DVT, PE, HI, CVA etc. Following our discussion I answered all of her questions. We will proceed tonight with laparoscopic cholecystectomy. (2) Nausea, vomiting, and diarrhea: History of Present Illness Attending Physician: Srinivas Ravi MD History of Present Illness This is a 61yF with a PMH of MS, HTN, GERD, depression who presents to the [facility] ED on 02/16/22 with complaints of nausea/vomiting and abdominal pain. Patient reports having issues with nausea in the evenings over the last year with intermittent vomiting ~1x/wk. She reports + burping and reflux symptoms a ssociated with this and is made worse with food intake, particularly fatty foods. Her nausea/vomiting became worse starting 2 days ago yesterday where she was unable to sleep, associated with multiple episodes of emesis. She also reports epigastric and RUQ abdominal pain that would not go away, rating it a 6- 7/10 in severity. She also had feelings of pressure in her chest after eating/drinking. Workup in the ER included a CT a/p that revealed + stones with no gallbladder wall thickening. An US was obtained that showed mild gallbladder distention with cholelithiasis without wall thickening or pericholecystic fluid identified to suggest acute cholecystitis. Follow up with a HIDA revealed an abnormally low gallbladder ejection fraction calculated to be 14 %. GI evaluated the patient and recommended surgical consultation given low EF on HIDA scan and symptoms likely related to gallbladder etiology. Patient had a tubal ligation, no other prior abdominal surgeries. She reports + diarrhea. History of Stone's esophagus with last EGD ~1 year ago. No blood in emesis, + bile. She did have a tray of clear liquids for lunch which did not exacerbate her symptoms, and although she has some ongoing nausea she is feeling better than admission. Allergies Allergy/AdvReac Type Severity Reaction Status Date / Time bee venom protein (honey bee) Allergy Severe Anaphylaxis Verified 12/30/20 08:26 clonazepam Allergy Mild Rash Verified 12/30/20 08:26 cephalexin Allergy Unknown Unknown Verified 12/30/20 08:26 Cephalosporins Allergy Unknown Unknown Verified 12/30/20 08:26 gabapentin Allergy Unknown Unknown Verified 12/30/20 08:26 sulfamethoxazole Allergy Unknown Unknown Verified 12/30/20 08:26 [From Bactrim] trimethoprim [From Bactrim] Allergy Unknown Unknown Verified 12/30/20 08:26 Home Medications Medication Instructions Recorded Confirmed Type baclofen 5 mg tablet 10 mg PO HS 11/29/18 12/09/20 History lorazepam 0.5 mg tablet (Ativan) 0.5 mg PO HS PRN Sleep 11/29/18 12/09/20 History ropinirole 2 mg tablet,extended 2 mg PO QAM 11/29/18 12/30/20 History release 24 hr venlafaxine 150 mg tablet,extended 150 mg PO QAM 11/29/18 12/09/20 History release 24 hr famotidine 20 mg tablet (Pepcid) 20 mg PO BID 05/10/20 12/30/20 History rosuvastatin 10 mg tablet (Crestor) 10 mg PO HS 10/16/20 12/09/20 History cetirizine 10 mg tablet 10 mg PO QAM 12/09/20 12/30/20 History cholecalciferol (vitamin D3) 50 50 mcg PO QAM 12/09/20 12/30/20 History mcg (2,000 unit) tablet (Vitamin D3) losartan 25 mg tablet 25 mg PO QAM 12/09/20 12/30/20 History melatonin 5 mg tablet 5 mg PO HS 12/09/20 12/30/20 History dalfampridine 10 mg 10 mg PO BID 02/17/22 02/17/22 History tablet,extended release,12 hr dextroamphetamine-amphetamine 10 10 mg PO USEASDIRECTD 02/17/22 02/17/22 History mg tablet metoprolol succinate 25 mg 12.5 mg PO HS 02/17/22 02/17/22 History tablet,extended release 24 hr Patient History Medical History Anxiety Barretts esophagus Colles' fracture Degenerative disc disease Depression Diastolic dysfunction GERD (gastroesophageal reflux disease) controlled Hiatal hernia Hyperlipidemia Hypertension Lumbar stenosis with neurogenic claudication Multiple sclerosis Follows with [facility] neurology, stable Nocturnal hypoxia 2 LPM at HS Osteoarthritis Periodic limb movement Thyroid nodule under surveillance UTI (urinary tract infection) Hx recurrent Surgical History Fusion of spine L4-5 and S1 History of bilateral tubal ligation History of colonoscopy History of esophagogastroduodenoscopy (EGD) Perirectal abscess resolved> surgery x2 [place] teeth extracted Family History Grandfather Diabetes Social History Smoking Status: Never smoker Second Hand Exposure: No; Hx Alcohol Use: Yes Alcohol type: beer, wine and hard liquor Hx Substance Use: Yes Last Used Substance Other:: medical marijuana oil > weekly Preferred Language: Welsh Communication Ability: Effective Certified Income Tax Preparer Required: No Beliefs That Will Affect Care: Moravian Moravian Beliefs: PENTECOSTAL marital status: Current Living Situation: Spouse How many Children do You have: 2 Feels Safe at Home: Yes Safety Concerns: Feels Safe At This Time Assistive Devices: Cane Review of Systems Constitutional: no fever and no chills Respiratory: no dyspnea Cardiovascular: Additional Comments: some lower chest discomfort with eating/drinking Gastrointestinal: + abdominal pain, + nausea, + vomiting and + diarrhea/loose stools; no bloating and no hematemesis Physical Exam Physical Exam: awake/alert Respiratory: no respiratory distress Gastrointestinal (Abdomen): Inspection/Auscultation: abdomen not distended Percussion/Palpation: abdomen soft; abdomen nontender Results & Data ([facility]) Vital Signs (Past 12 Hours) Vital Signs Temp Pulse Resp BP BP Pulse Ox O2 Del Method 02/17/22 09:56 36.8 C 60 16 97/63 L 95 Room Air 02/17/22 07:06 36.6 C 73 16 104/67 95 Room Air Diagnostic Findings ABDOMEN AND PELVIS CT WITHOUT CONTRAST CT DOSE: 907.29 mGy.cm HISTORY: upper abd pain, vomiting TECHNIQUE: Multiaxial CT images of the abdomen and pelvis were performed without contrast. A dose lowering technique was utilized adhering to the principles of ALARA. COMPARISON STUDY: Abdomen and pelvis CT 02/26/2016. FINDINGS: Posterior decompression and fusion at L3-L4 with pedicle screws and rods. Evidence for prior pedicle screw removal at L5. Bibasilar linear and groundglass densities favor subsegmental atelectasis/dependent change. No pneumoperitoneum. No pneumatosis. No fractures within the visualized osseous structures. The bladder, uterus, bilateral adnexa are unremarkable. No pelvic free fluid. Suboptimal evaluation for bowel pathology due to the lack of intravenous and oral contrast. However, there is no definite bowel wall thickening or obstruction. Normal appendix. Colonic diverticulosis. No evidence for acute diverticulitis. A few scattered hypodense lesions again noted within the liver measuring up to 2 cm. These remain stable and likely represent cysts. Multiple small gallstones. No gallbladder wall thickening. The unenhanced pancreas, spleen, and adrenal glands are unremarkable. No renal or ureteral stones. No hydronephrosis. There is a 4.7 cm cyst within the upper pole the left kidney. Normal caliber abdominal aorta. No retroperitoneal lymphadenopathy. IMPRESSION: 1. Cholelithiasis. No gallbladder wall thickening. 2. Colonic diverticulosis. No evidence for acute diverticulitis. 3. No bowel wall thickening or obstruction. 4. Normal appendix. 5. Additional findings as described above. ACT 112: Negative or not required by law. Electronically signed by: Shaun Webber M.D. 02/17/2022 7:40 AM US gallbladder HISTORY: 61 years-old Female vomiting, pain, CT with stones acute right upper quadrant abdominal pain with nausea and vomiting COMPARISON: CT abdomen and pelvis of same day TECHNIQUE: Multiple real-time sonographic images of the abdominal right upper quadrant were obtained assessing grayscale appearance and color flow FINDINGS: The pancreas is obscured by bowel gas. Numerous hepatic cysts measure up to approximately 3.2 cm. Mildly increased echogenicity of the hepatic parenchyma suggestive of hepatic steatosis. No solid mass identified. The liver measures up to 16.2 cm in length. Stone filled gallbladder with mild distention. No gallbladder wall thickening or pericholecystic fluid identified. Negative sonographic Mcclure's sign. Normal common bile duct, 2 mm. The imaged right kidney is unremarkable without hydronephrosis. IMPRESSION: 1. Mild gallbladder distention with cholelithiasis. There is no gallbladder wall thickening or pericholecystic fluid identified to suggest acute cholecystitis. Findings could be correlated with nuclear medicine hepatobiliary scan. 2. No biliary ductal dilation. 3. Hepatic steatosis with hepatic cysts. ACT 112: Negative or not required by law. The above report was generated using voice recognition software. It may contain grammatical, syntax or spelling errors. Electronically signed by: Nadir Joy M.D. 02/17/2022 6:53 AM NUCLEAR MEDICINE HEPATOBILIARY SCAN WITH EJECTION FRACTION HISTORY: Nausea. Vomiting. Generalized abdominal Pain, gallstones COMPARISON: Abdominal ultrasound 02/16/2022. TECHNIQUE: Immediately following the intravenous administration of 5.4 mCi Tc- 99m Choletec, dynamic anterior abdominal imaging pre/post 1.8 mcg of Kinevac was performed. FINDINGS: Uniform hepatic tracer accumulation is shown. Prompt intrahepatic biliary excretion is seen. The gallbladder, common bile duct, and small bowel are all visualized by 50 minutes. This appearance represents the normal sequence of biliary excretion. The gall bladder ejection fraction following administration of Kinevac was 14% (normal >35%). IMPRESSION: 1. No evidence for cystic duct obstruction. 2. Abnormally low gallbladder ejection fraction calculated to be 14 %. ACT 112: Negative or not required by law. Electronically signed by: Shaun Webber M.D. 02/17/2022 9:30 AM PG Care Time/CCT Total # of Minutes Spent Total Time Spent with Patient: Total time spent is greater than 50% in coordination of care (as documented) at patient's floor/unit and/or counseling patient: Coding Level of Care Code 12687 Inpt Consult Level 4 Diagnoses Abnormal biliary HIDA scan R94.8 Nausea, vomiting, and diarrhea R11.2; R19.7
--- NOTE | 2022-02-17 16:00 | Hospitalist Progress Note ---
Date of Service February 17, 2022 Assessment & Plan (1) Abnormal biliary HIDA scan: (2) Acute upper abdominal pain: (3) Nausea, vomiting, and diarrhea: (4) UTI (urinary tract infection): (5) Multiple sclerosis: (6) Depression: (7) Diastolic dysfunction: (8) Hypertension: (9) Nocturnal hypoxia: Plan This is a 61yo F with a PMH of MS, HTN, GERD, depression who presents to the [facility] ED on 02/16/22 with complaints of nausea/vomiting and abdominal pain. Abnormal biliary HIDA scan Right upper quadrant pain Nausea, vomiting and diarrhea History of Stone's esophagus Improved overnight. Continue IV Protonix twice daily, IV antiemetics, fluids US was obtained that showed mild gallbladder distention with cholelithiasis without wall thickening or pericholecystic fluid identified to suggest acute cholecystitis GI consulted- LFTs normal, HIDA scan with low EF, recommend surgery consult for cholecystectomy Gen surgery evaluated - No evidence for acute cholecystitis, although symptoms may be related to biliary dysfunction noted on HIDA scan. Patient preference for of cholecystectomy sooner vs later Made NPO - OR timing pending but possible laparoscopic cholecystectomy this evening Urinary tract infection History of recurrent UTIs in setting of multiple sclerosis. Started on Cipro due to multiple allergies but QT on longer side at 515 -transitioning to Zosyn. Monitor for reaction. Follow urine cultures Restless leg syndrome Resume ropinirole once advanced to p.o. Depression Anxiety Venlafaxine, Adderall, Ativan as needed Hypertension Toprol, losartan Multiple sclerosis Stable. Currently not on any medications. Follows with neurology DVT Ppx: SCDs Code status: FULL PCP: Ti Dispo: Admitted to med/surg Patient seen in collaboration with Dr. Ravi. Please see addendum. Admission and Anticipated Discharge Date Admission Date: February 17, 2022 Supervising Physician Co-Signing Physician Notes Patient seen and examined by me, care coordinated with Elsa Montero PA-C, please refer to her note above for further detail. Patient is currently lying in bed, in no acute distress. She feels improved since yesterday, when presented with nausea vomiting abdominal pain. She still has some right upper quadrant discomfort. She was seen by GI and general surgery. On imaging, gallstones noted, however no acute cholecystitis. HIDA scan obtained, low EF, recommended for cholecystectomy, possibly this evening. Otherwise patient denies any fevers, chills, chest pain, shortness of breath. Urine culture pending. Continue IV antibiotics for now. MD Breonna Subjective Seen and examined [id number]. Feeling better today, with improved right upper quadrant pain still present but mainly painful with movement. Has some epigastric discomfort she describes as "having a bubble in my chest", worse after fatty foods. Nausea and diarrhea improved since yesterday. Ambulating independently in the room without issue. No fever, chills, headache, chest pain, shortness of breath, dysuria or constipation. Review of Systems Review of Systems: At least ten systems reviewed and negative except as noted in the HPI. Physical Exam Physical Exam: Gen: WD/WN, NAD, sitting in bed, A&Ox3 HEENT: Normocephalic, atraumatic, conjunctivae moist, sclerae anicteric, mucous membranes moist Lung: Clear to Auscultation bilaterally, no wheezes/rales/rhonchi Heart: Regular rate, regular rhythm, no murmurs, rubs, or gallops Abdomen: Soft, RUQ TTP, ND, no guarding, +BS x 4 Extremities: no edema Skin: Warm, no rash Results & Data Results & Data ([facility]) Vital Signs (Past 12 Hours) Vital Signs Temp Pulse Resp BP BP Pulse Ox O2 Del Method 02/17/22 14:58 36.6 C 60 16 111/69 95 Room Air 02/17/22 09:56 36.8 C 60 16 97/63 L 95 Room Air 02/17/22 07:06 36.6 C 73 16 104/67 95 Room Air Laboratory Results Short CBC 02/16/22 02/17/22 Range/Units 21:05 10:52 WBC 9.39 5.87 (4.8-10.8) K/ul Hgb 14.9 13.3 (12.0-16.0) g/dl Hct 44.0 40.2 (34.1-44.9) % Plt Count 242 191 (130-400) K/uL BMP 02/16/22 02/17/22 21:05 10:52 Sodium 139 139 Potassium 3.7 4.2 Chloride 104 106 Carbon Dioxide 24 25 BUN 17 14 Creatinine 0.75 0.72 Glucose 111 H 113 H Calcium 10.3 H 9.0 Liver Function 02/16/22 02/17/22 Range/Units 21:05 10:52 Total Bilirubin 0.8 0.8 (0.2-1.0) mg/dl Direct Bilirubin 0.1 (0-0.2) mg/dl AST 16 16 (13-39) U/L ALT 17 16 (7-52) U/L Alkaline Phosphatase 117 H 100 (34-104) U/L Albumin 4.5 4.0 (3.4-5.0) gm/dl Urine 02/16/22 Range/Units 21:00 Urine Color Yellow Urine Appearance Cloudy A (Clear) Urine pH 7.0 (4.5-7.5) Ur Specific [place] 1.019 (1.000-1.030) Urine Protein Negative (Negative) Urine Glucose (UA) Negative (Negative) Diagnostic Findings Abdomen/Pelvis CT 02/16/22 20:[address] WITHOUT CONTRAST CT DOSE: 907.29 mGy.cm HISTORY: upper abd pain, vomiting TECHNIQUE: Multiaxial CT images of the abdomen and pelvis were performed without contrast. A dose lowering technique was utilized adhering to the principles of ALARA. COMPARISON STUDY: Abdomen and pelvis CT 02/26/2016. FINDINGS: Posterior decompression and fusion at L3-L4 with pedicle screws and rods. Evidence for prior pedicle screw removal at L5. Bibasilar linear and groundglass densities favor subsegmental atelectasis/dependent change. No pneumoperitoneum. No pneumatosis. No fractures within the visualized osseous structures. The bladder, uterus, bilateral adnexa are unremarkable. No pelvic free fluid. Suboptimal evaluation for bowel pathology due to the lack of intravenous and oral contrast. However, there is no definite bowel wall thickening or obstruction. Normal appendix. Colonic diverticulosis. No evidence for acute diverticulitis. A few scattered hypodense lesions again noted within the liver measuring up to 2 cm. These remain stable and likely represent cysts. Multiple small gallstones. No gallbladder wall thickening. The unenhanced pancreas, spleen, and adrenal glands are unremarkable. No renal or ureteral stones. No hydronephrosis. There is a 4.7 cm cyst within the upper pole the left kidney. Normal caliber abdominal aorta. No retroperitoneal lymphadenopathy. IMPRESSION: 1. Cholelithiasis. No gallbladder wall thickening. 2. Colonic diverticulosis. No evidence for acute diverticulitis. 3. No bowel wall thickening or obstruction. 4. Normal appendix. 5. Additional findings as described above. ACT 112: Negative or not required by law. Electronically signed by: Shaun Webber M.D. 02/17/2022 7:40 AM Gallbladder Ultrasound 02/16/22 22:18 US gallbladder HISTORY: 61 years-old Female vomiting, pain, CT with stones acute right upper quadrant abdominal pain with nausea and vomiting COMPARISON: CT abdomen and pelvis of same day TECHNIQUE: Multiple real-time sonographic images of the abdominal right upper quadrant were obtained assessing grayscale appearance and color flow FINDINGS: The pancreas is obscured by bowel gas. Numerous hepatic cysts measure up to approximately 3.2 cm. Mildly increased echogenicity of the hepatic parenchyma suggestive of hepatic steatosis. No solid mass identified. The liver measures up to 16.2 cm in length. Stone filled gallbladder with mild distention. No gallbladder wall thickening or pericholecystic fluid identified. Negative sonographic Mcclure's sign. Normal common bile duct, 2 mm. The imaged right kidney is unremarkable without hydronephrosis. IMPRESSION: 1. Mild gallbladder distention with cholelithiasis. There is no gallbladder wall thickening or pericholecystic fluid identified to suggest acute cholecystitis. Findings could be correlated with nuclear medicine hepatobiliary scan. 2. No biliary ductal dilation. 3. Hepatic steatosis with hepatic cysts. ACT 112: Negative or not required by law. The above report was generated using voice recognition software. It may contain grammatical, syntax or spelling errors. Electronically signed by: Nadir Joy M.D. 02/17/2022 6:53 AM Hepatobiliary Scan Nuclear Medicine 02/17/22 08:00 NUCLEAR MEDICINE HEPATOBILIARY SCAN WITH EJECTION FRACTION HISTORY: Nausea. Vomiting. Generalized abdominal Pain, gallstones COMPARISON: Abdominal ultrasound 02/16/2022. TECHNIQUE: Immediately following the intravenous administration of 5.4 mCi Tc- 99m Choletec, dynamic anterior abdominal imaging pre/post 1.8 mcg of Kinevac was performed. FINDINGS: Uniform hepatic tracer accumulation is shown. Prompt intrahepatic biliary excretion is seen. The gallbladder, common bile duct, and small bowel are all visualized by 50 minutes. This appearance represents the normal sequence of biliary excretion. The gall bladder ejection fraction following administration of Kinevac was 14% (normal >35%). IMPRESSION: 1. No evidence for cystic duct obstruction. 2. Abnormally low gallbladder ejection fraction calculated to be 14 %. ACT 112: Negative or not required by law. Electronically signed by: Shaun Webber M.D. 02/17/2022 9:30 AM
[2022-02-17] MEDS ORDERED: PIPERACILLIN/TAZOBACTAM 3.375 GM in DEXTROSE 5% 100 ML IV STA (16:11)
[2022-02-17] MEDS ORDERED: DEXAMETHASONE SOD INJ 4 MG/ML VIAL ONE (18:09)
[2022-02-17] MEDS ORDERED: fentaNYL citrate 100 MCG/2 ML VIAL ONE ×2 (18:09→20:14)
[2022-02-17] MEDS ORDERED: MIDAZOLAM HCL 1 MG/ML 2ML VIAL ONE (18:09)
[2022-02-17] MEDS ORDERED: LIDOCAINE 2% MPF LOCAL 5 ML VIAL INFIL ONE (18:09)
[2022-02-17] MEDS ORDERED: ONDANSETRON INJ 2 MG/ML 2 ML VIAL ONE (18:09)
[2022-02-17] MEDS ORDERED: PROPOFOL IV EMULSION 10 MG/ML 20 ML VIAL IV ONE (18:09)
[2022-02-17] MEDS ORDERED: ROCURONIUM BROMIDE 10 MG/ML 5 ML VIAL IV ONE (18:09)
[2022-02-17] MEDS ORDERED: EPINEPHrine INJ 1 MG/ML AMP ONE (18:47)
[2022-02-17] MEDS ORDERED: BUPIVACAINE 0.5 % 5 MG/1 ML MPF 30ML VIAL ONE (18:47)
--- NOTE | 2022-02-17 18:58 | Anesthesiology Consultation ---
Date of Service February 17, 2022 Assessment & Plan Chart Review Chart Review: Acceptable Risk for Surgery Consults Requested none History Surgery Operation Date: 02/17/22 13:55 Proposed Procedures p Laparoscopic Cholecystectomy - Steve Newman DO Height/Weight Height: 5 ft 5 in Weight: 90.1 kg Allergies Allergy/AdvReac Type Severity Reaction Status Date / Time bee venom protein (honey bee) Allergy Severe Anaphylaxis Verified 12/30/20 08:26 clonazepam Allergy Mild Rash Verified 12/30/20 08:26 cephalexin Allergy Unknown Unknown Verified 12/30/20 08:26 Cephalosporins Allergy Unknown Unknown Verified 12/30/20 08:26 gabapentin Allergy Unknown Unknown Verified 12/30/20 08:26 sulfamethoxazole Allergy Unknown Unknown Verified 12/30/20 08:26 [From Bactrim] trimethoprim [From Bactrim] Allergy Unknown Unknown Verified 12/30/20 08:26 Medications Home Medications Medication Instructions Recorded Confirmed Last Taken baclofen 5 mg tablet 10 mg PO HS 11/29/18 02/17/22 12/29/20 21:00 lorazepam 0.5 mg tablet (Ativan) 0.5 mg PO HS PRN Sleep 11/29/18 02/17/22 12/29/20 21:00 ropinirole 2 mg tablet,extended 2 mg PO QAM 11/29/18 02/17/22 1 Day Ago release 24 hr ~12/29/20 venlafaxine 150 mg tablet,extended 150 mg PO QAM 11/29/18 02/17/22 12/30/20 06:30 release 24 hr famotidine 20 mg tablet (Pepcid) 20 mg PO BID 05/10/20 02/17/22 12/30/20 06:30 rosuvastatin 10 mg tablet (Crestor) 10 mg PO HS 10/16/20 02/17/22 12/29/20 21:00 cetirizine 10 mg tablet 10 mg PO QAM 12/09/20 02/17/22 12/29/20 08:00 cholecalciferol (vitamin D3) 50 50 mcg PO QAM 12/09/20 02/17/22 12/29/20 21:00 mcg (2,000 unit) tablet (Vitamin D3) losartan 25 mg tablet 25 mg PO QAM 12/09/20 02/17/22 12/29/20 08:00 melatonin 5 mg tablet 5 mg PO HS 12/09/20 02/17/22 12/29/20 21:00 dalfampridine 10 mg 10 mg PO BID 02/17/22 02/17/22 Unknown tablet,extended release,12 hr dextroamphetamine-amphetamine 10 10 mg PO USEASDIRECTD 02/17/22 02/17/22 Unknown mg tablet metoprolol succinate 25 mg 12.5 mg PO HS 02/17/22 02/17/22 Unknown tablet,extended release 24 hr oxycodone-acetaminophen 5 mg-325 1 - 2 tab PO Q4H PRN pain, initial 02/17/22 Unknown mg tablet (Percocet) therapy, max 6 daily #15 tabs pantoprazole 40 mg tablet,delayed 40 mg PO DAILY 02/17/22 02/17/22 Unknown release Active Medications Generic Name Dose Route Start Last Admin Trade Name Freq PRN Reason Stop Dose Admin Amphetamine/Dextroamphetamine 10 mg 02/17/22 09:00 02/17/22 14:20 Amphetamine Asp/Sulf/Dextramph 10 Mg Tab PO 03/03/22 08:59 Not Given BID@0900,1400 MARIE Cetirizine HCl 10 mg 02/17/22 09:00 02/17/22 09:58 Cetirizine Hcl 10 Mg Tablet PO 03/19/22 08:59 10 mg QAM MARIE Administration Pantoprazole Sodium 40 mg/ 10 mls @ 5 mls/min 02/17/22 09:00 02/17/22 10:47 Syringe IV 03/19/22 08:59 5 mls/min BID MARIE Administration Dextrose/Sodium Chloride 1,000 mls @ 125 mls/hr 02/17/22 01:49 02/17/22 16:35 D5w And 1/2nss IV 03/19/22 01:48 0 mls/hr .Q8H MARIE Infusion Acetaminophen 1,000 mg in 100 mls @ 400 mls/hr 02/17/22 01:49 02/17/22 11:44 Ofirmev IV 02/20/22 01:48 Infused Q8H PRN Infusion Pain or Fever Sincalide 1.8 mcg/ Sodium 101.8 mls @ 200 mls/hr 02/17/22 08:00 02/17/22 10:02 Chloride IV 02/17/22 23:59 Infused TODAY@0800 MARIE Infusion Losartan Potassium 25 mg 02/17/22 09:00 02/17/22 09:58 Losartan Potassium 25 Mg Tab PO 03/19/22 08:59 Not Given QAM MARIE Miscellaneous 1 each 02/17/22 08:00 02/17/22 15:16 Ropinirole 2 Mg Tablet Extended Release - Order Awaiting Action N/A 03/19/22 07:59 Not Given QS MARIE Miscellaneous 1 each 02/17/22 08:00 02/17/22 15:16 Dalfampridine 10 Mg - Order Awaiting Action N/A 03/19/22 07:59 Not Given QS MARIE Ondansetron HCl 4 mg 02/17/22 01:49 02/17/22 15:41 Ondansetron Inj 2 Mg/Ml 2 Ml Vial IV 03/19/22 01:48 4 mg Q6H PRN Administration Nausea Venlafaxine HCl 150 mg 02/17/22 09:00 02/17/22 09:58 Venlafaxine Hcl Xr 150 Mg Capxr PO 03/19/22 08:59 150 mg QAM AMRIE Administration NPO Date Last Intake of Fluids: 02/17/22 Time Last Intake of Fluids: 13:00 Last Intake of Fluids Comment: clear liquid diet Date Last Intake of Solids: 02/16/22 Time Last Intake of Solids: 17:00 Past Medical History Medical History Anxiety Barretts esophagus Colles' fracture Degenerative disc disease Depression Diastolic dysfunction GERD (gastroesophageal reflux disease) controlled Hiatal hernia Hyperlipidemia Hypertension Lumbar stenosis with neurogenic claudication Multiple sclerosis Follows with [facility] neurology, stable Nocturnal hypoxia 2 LPM at HS Osteoarthritis Periodic limb movement Thyroid nodule under surveillance UTI (urinary tract infection) Hx recurrent Past Family History Family History Grandfather Diabetes Past Surgical History Surgical History Fusion of spine L4-5 and S1 History of bilateral tubal ligation History of colonoscopy History of esophagogastroduodenoscopy (EGD) Perirectal abscess resolved> surgery x2 [place] teeth extracted Social History Smoking Status: Never smoker Hx Alcohol Use: Yes Alcohol type: beer, wine and hard liquor alcohol intake frequency: a few times a month Hx Substance Use: Yes substance use type: marijuana Last Used Substance Other:: medical marijuana oil > weekly Physical Exam Vital Signs Last Vital Signs Temp 36.8 C 02/17/22 16:54 Pulse 68 02/17/22 16:54 Resp 16 02/17/22 16:54 BP 120/64 02/17/22 16:54 Pulse Ox 96 02/17/22 16:54 O2 Del Method 02/17/22 16:54 Testing Laboratory Results 02/17/22 10:52 02/17/22 10:52 Urine Color Yellow 02/16/22 21:00 Urine Appearance Cloudy (Clear) A 02/16/22 21:00 Urine pH 7.0 (4.5-7.5) 02/16/22 21:00 Ur Specific Bruce 1.019 (1.000-1.030) 02/16/22 21:00 Urine Protein Negative (Negative) 02/16/22 21:00 Urine Glucose (UA) Negative (Negative) 02/16/22 21:00 Urine Ketones Negative (Negative) 02/16/22 21:00 Urine Nitrite Negative (Negative) 02/16/22 21:00 Ur Leukocyte Esterase 1+ (Negative) H 02/16/22 21:00 Urine WBC (Auto) 5-10 /hpf (0-5) H 02/16/22 21:00 Urine RBC (Auto) 5-10 /hpf (0-4) H 02/16/22 21:00 U Hyaline Cast (Auto) 1-5 /lpf (0-5) 02/16/22 21:00 U Epithel Cells (Auto) >30 /lpf (0-5) H 02/16/22 21:00 Urine Bacteria (Auto) 1+ (Negative) H 02/16/22 21:00 02/16/22 21:00 Urine Culture - Preliminary Urine,Clean Catch Gram positive cocci
[2022-02-17] MEDS ORDERED: ePHEDrine sulfate 50 MG/ML AMP IV PRN (19:01)
[2022-02-17] MEDS ORDERED: ATROPINE SULFATE 0.1 MG/ML 10ML SYR IV PRN (19:01)
[2022-02-17] MEDS ORDERED: HYDROmorphone INJ 2 MG/ML SYR/VIAL IV PRN (19:01)
[2022-02-17] MEDS ORDERED: PROMETHAZINE HCL 12.5 MG in SODIUM CHLORIDE 0.9% 50 ML IV PRN (19:01)
[2022-02-17] MEDS ORDERED: ePHEDrine sulfate 50 MG/ML AMP ONE ×2 (19:37)
[2022-02-17] MEDS: fentaNYL citrate 100 MCG/2 ML VIAL IV PRN ×2 (20:15→20:20)
--- NOTE | 2022-02-17 20:15 | Operative Report ---
PG Post Operative Report Pre & Post Diagnosis Operation Date: 02/17/22 13:55 Pre-Op Diagnosis: Symptomatic gall stones Post-Op Diagnosis: Symptomatic gall stones I identified the patient and participated in the time-out.: Yes Procedure Operation Date: 02/17/22 13:55 Actual Procedures p Laparoscopic Cholecystectomy(Not Applicable) - Steve Newman DO Surgeon Steve Newman DO Vision Mixer marina Hudson Estimated Blood Loss 15 Findings Consistent with Post-Op Diagnosis Specimens gallbladder Description of Procedure After informed consent was obtained the patient was taken to the operating room and placed in the supine position. After successful intubation the abdomen was sterilely prepped and draped in usual fashion. A periumbilical incision was made with an 11 blade scalpel and carried down through the soft tissue using electrocautery. The anterior rectus fascia was opened using electrocautery and 2 #0 Vicryl stay sutures were placed. The peritoneum was elevated with hemostats and incised under direct vision using Metzenbaum scissors. A finger sweep was performed and a 12 mm Vargas trocar was placed. The abdomen was insufflated to 18 mmHg. The laparoscope was inserted and the abdomen was examined in 360. There was a moderate sized hiatal hernia with a portion of stomach incarcerated. There is also several centimeter simple hepatic cyst on the right lobe. Otherwise, no gross abnormalities were identified. A subxiphoid 5 mm port and 2 right upper quadrant 5 mm ports were placed under direct vision. The patient was placed in a reverse Trendelenburg position and slightly airplaned to the left. The gallbladder was grasped and elevated superiorly and laterally. A [place] dissector was used to take down adhesions around the neck of the gallbladder. The cystic duct was identified and skeletonized. It was clipped twice proximally and once distally and transected using a laparoscopic scissor. In similar fashion the cystic artery was identified and skeletonized clipped and divided. The gallbladder was removed from the gallbladder fossa with electrocautery. It was placed into an Endo Catch bag. Thorough irrigation was performed. At the end of the procedure there was adequate hemostasis and no evidence of any bile leaks. A final look around the abdomen showed no other abnormalities. The gallbladder and trochars were all removed and the abdomen was desufflated. The fascia of the camera port was closed using 0 Vicryl in a [id number] fashion. All the wounds were irrigated and closed using 4-0 Monocryl. Marcaine was injected around them for postoperative analgesia and skin glue used as a dressing. The patient was awaken extubated and transferred to recovery in stable condition. My physician's administrative assistant was present throughout the entire case... helped with prepping the patient. With exposure for trocar placement, as well as retracted the gallbladder throughout the case and also assisted with wound closure and dressing placement. I attest to the content of the Intraoperative Record and any orders documented therein. Any exceptions are noted below.
--- NOTE | 2022-02-17 20:48 | Anesthesiology Progress Note ---
Date of Service February 17, 2022 Anesthesia Post Procedure Vital Signs Vital Signs: Temp Pulse Pulse Resp BP BP Pulse Ox 02/17/22 20:35 51 L 18 116/65 100 02/17/22 20:25 61 17 121/63 100 02/17/22 20:15 60 13 116/65 98 02/17/22 20:06 36.0 C L 76 12 150/87 H 98 02/17/22 16:54 36.8 C 68 16 120/64 96 02/17/22 14:58 36.6 C 60 16 111/69 95 02/17/22 09:56 36.8 C 60 16 97/63 L 95 02/17/22 07:06 36.6 C 73 16 104/67 95 02/17/22 01:35 36.7 C 82 16 114/76 95 02/17/22 01:14 85 20 97/64 L 98 02/17/22 00:06 85 22 95/72 L 94 O2 Del Method O2 Flow Rate 02/17/22 20:35 Nasal Cannula 2 02/17/22 20:25 Nasal Cannula 2 02/17/22 20:15 Nasal Cannula 3 02/17/22 20:06 Nasal Cannula 3 02/17/22 16:54 Room Air 02/17/22 14:58 Room Air 02/17/22 09:56 Room Air 02/17/22 07:06 Room Air 02/17/22 01:35 Room Air 02/17/22 01:14 Room Air 02/17/22 00:06 Room Air Pain Intensity Back: Pain Intensity: 3 Transfer of Care Handoff Completed per policy Notes Mental Status: alert / awake / arousable and participated in evaluation Patient Amnestic to Procedure: Yes Nausea / Vomiting: adequately controlled Pain: adequately controlled Airway Patency, RR, SpO2: stable & adequate BP & HR: stable & adequate Hydration State: stable & adequate Anesthetic Complications: no major complications apparent
[2022-02-17] MEDS ORDERED: BACLOFEN 10 MG TAB PO SCH ×2 (21:00)
[2022-02-17] MEDS ORDERED: MELATONIN 3 MG TAB PO SCH (21:00)
[2022-02-17] MEDS ORDERED: ROSUVASTATIN CALCIUM 10 MG TAB PO SCH (21:00)
[2022-02-17] MEDS ORDERED: METOPROLOL SUCC 25MG EXT REL TAB PO SCH (21:00)
[2022-02-17] MEDS ORDERED: MoRPHine SULFATE 4 MG/ML 1 ML CARP\\VIAL IV PRN (21:14)
[2022-02-17] MEDS: PIPERACILLIN/TAZOBACTAM 3.375 GM in DEXTROSE 5% 100 ML IV SCH (21:17)
[2022-02-17] MEDS: LACTATED RINGER'S 1,000 ML IV SCH (21:35)
[2022-02-18] MEDS: PIPERACILLIN/TAZOBACTAM 3.375 GM in DEXTROSE 5% 100 ML IV SCH ×2 (04:34→13:31)
[2022-02-18] MEDS: LACTATED RINGER'S 1,000 ML IV SCH (06:20)
--- NOTE | 2022-02-18 07:31 | Surgery Progress Note ---
Date of Service February 18, 2022 Assessment & Plan (1) Abnormal biliary HIDA scan: Plan: POD#1 lap christie Labs pending Patient clinically feeling well and denies any further symptoms that she came in with Abdomen soft, non tender, incisions c/d/i Will trial advancing diet as she tolerates If pain controlled, diet tolerated she may dispo from our standpoint Dispo instructions reviewed, f/u in clinic with Dr. Newman in 1-2 weeks Admission and Anticipated Discharge Date Admission Date: February 17, 2022 Subjective Patient denies any abdominal pain. No further nausea/vomiting. Is happy this AM with outcome. Physical Exam Physical Exam: awake/alert, no acute distress Gastrointestinal (Abdomen): Inspection/Auscultation: + abdominal surgical incision (c/d/i with skin glue); abdomen not distended Percussion/Palpation: abdomen soft; abdomen nontender Results & Data ([facility]) Vital Signs (Past 12 Hours) Vital Signs Temp Pulse Pulse Resp BP Pulse Ox O2 Del Method 02/18/22 06:47 36.6 C 72 16 98/63 L 90 Room Air 02/18/22 03:56 36.7 C 102 H 16 113/66 90 Room Air 02/17/22 23:05 93 Nasal Cannula 02/17/22 23:00 36.8 C 95 H 18 102/66 87 L Room Air 02/17/22 23:55 36.6 C 63 17 106/68 96 Nasal Cannula 02/17/22 21:05 Nasal Cannula 02/17/22 22:04 36.6 C 67 18 115/71 93 Nasal Cannula 02/17/22 21:00 36.7 C 65 16 108/59 L 96 Nasal Cannula 02/17/22 21:30 36.4 C L 66 17 117/69 96 Nasal Cannula 02/17/22 20:35 51 L 18 116/65 100 Nasal Cannula 02/17/22 20:25 61 17 121/63 100 Nasal Cannula 02/17/22 20:15 60 13 116/65 98 Nasal Cannula 02/17/22 20:06 36.0 C L 76 12 150/87 H 98 Nasal Cannula O2 Flow Rate 02/18/22 06:47 02/18/22 03:56 02/17/22 23:05 2 02/17/22 23:00 02/17/22 23:55 2 02/17/22 21:05 2 02/17/22 22:04 02/17/22 21:00 2 02/17/22 21:30 2 02/17/22 20:35 2 02/17/22 20:25 2 02/17/22 20:15 3 02/17/22 20:06 3 PG Care Time/CCT Total # of Minutes Spent Total Time Spent with Patient: Total time spent is greater than 50% in coordination of care (as documented) at patient's floor/unit and/or counseling patient: Coding Level of Care Code None Diagnoses Abnormal biliary HIDA scan R94.8
[2022-02-18 07:36] LABS: Hematocrit (blood only) 37.1 % (34.1-44.9); Hemoglobin 12.5 g/dl (12.0-16.0); Mean Corpuscular Hemoglobin 32.2 pg (25.0-34.0); Mean Corpuscular Hgb Conc 33.7 g/dL (32.0-36.0); Mean Corpuscular Volume 95.6 fL (80.0-100.0); Mean Platelet Volume 10.3 fL (9.4-12.3); Platelet Count 197 K/uL (130-400); RDW Standard Deviation 41.9 fL (36.4-46.3); Red Blood Count 3.88 M/uL (3.93-5.22); White Blood Count 7.32 K/ul (4.8-10.8)
[2022-02-18 07:59] LABS: BUN Creatinine Ratio 16.2 (10-20); Calcium 8.8 mg/dl (8.5-10.1); Creatinine Clr Calc Pharmacy 93.9 ml/min; Est GFR (African American) 107.9 ml/min; Est GFR (Non-African American) 93.1 ml/min; Magnesium 2.1 mg/dl (1.7-2.4); Phosphorus 4.3 mg/dl (2.5-4.9); Potassium 4.3 mmol/L (3.5-5.1)
[2022-02-18] MEDS: PANTOprazole 40 MG in SYRINGE 0 ML IV SCH (08:20)
[2022-02-18] MEDS: VENLAFAXINE HCL XR 150 MG CAPXR PO SCH (08:21)
[2022-02-18] MEDS: LOSARTAN POTASSIUM 25 MG TAB PO SCH (08:21)
[2022-02-18] MEDS: CETIRIZINE HCL 10 MG TABLET PO SCH (08:22)
[2022-02-18] MEDS: AMPHETAMINE ASP/SULF/DEXTRAMPH 10 MG TAB PO SCH ×2 (08:25→13:31)
[2022-02-18] MEDS ORDERED: CHOLECALCIFEROL 1,000 UNITS 25 MCG TAB PO SCH (09:00)
[2022-02-18] MEDS ORDERED: oxyCODONE HCL IR 5 MG TAB (IMMEDIATE RELEASE) PO PRN (09:12)
--- NOTE | 2022-02-18 13:19 | Surgery Progress Note ---
Date of Service February 18, 2022 Assessment & Plan (1) Hx laparoscopic cholecystectomy: Plan: Postoperative day #1. Doing well. Okay from my standpoint for discharge. Follow-up in 1 to 2 weeks. Instructions given. Admission and Anticipated Discharge Date Admission Date: February 17, 2022 Subjective Patient seen. Doing well. Tolerating diet so far. Physical Exam Physical Exam: Alert and oriented no acute distress Abdomen is soft with expected tenderness Results & Data ([facility]) Vital Signs (Past 12 Hours) Vital Signs Temp Pulse Resp BP Pulse Ox O2 Del Method 02/18/22 06:47 36.6 C 72 16 98/63 L 90 Room Air 02/18/22 03:56 36.7 C 102 H 16 113/66 90 Room Air PG Care Time/CCT Total # of Minutes Spent Total Time Spent with Patient: Total time spent is greater than 50% in coordination of care (as documented) at patient's floor/unit and/or counseling patient: Coding Level of Care Code None Diagnoses Hx laparoscopic cholecystectomy Z90.49
--- NOTE | 2022-02-18 15:44 | Discharge Summary ---
Date of Service February 18, 2022 Admission HPI Per Admitting Provider HISTORY OF PRESENT ILLNESS: A 61-year-old female with past medical history significant for hyperlipidemia, allergic rhinitis, pulmonary nodule, nocturnal hypoxemia, hypertension, GERD, Stone's esophagus, restless legs syndrome, lumbar degenerative disc disease, multiple sclerosis, history of coccydynia, history of toxic effect of venom, depression, history of medical marijuana use, presents with abdominal pain, nausea, vomiting. The patient states since yesterday evening, she is having like a bubble-like feeling in her epigastric region with abdominal discomfort, a lot of nausea, vomiting, not able to eat any thing and having some pain in the right upper quadrant region also. She gets this often, but lately getting more frequently. It is not getting better, so she came to the hospital. Has some headache. No blurred visions, no runny nose, no sore throat, no cough, no fevers, except the pain in the epigastric region no chest pain, no shortness of breath. Normal bowel and bladder movements. Currently, denies any blood in the urine. She says she has frequent UTIs because of her MS, but denies any burning micturition, no swelling in the legs. She has ambulatory dysfunction. Admission Exam Per Admitting Provider GENERAL: The patient is of moderate build, not in acute distress. VITAL SIGNS: Temperature 37.3, pulse 84, respiratory rate 22, blood pressure 95/70, oxygen 94% on room air. HEENT: Pupils equal, round and reactive to light. Oral mucosa moist. NECK: No JVD, no neck masses. CARDIOVASCULAR: S1 and S2 heard. Regular rate and rhythm. No murmur, no gallop. RESPIRATORY SYSTEM: Normal AP diameter. No accessory muscle use. No wheezing, no crackles. ABDOMEN: Soft, bowel sounds present. Mild tenderness in the epigastric and right upper quadrant region. No guarding, no rigidity, no distention. CENTRAL NERVOUS SYSTEM: Cranial nerves II through XII are grossly intact, nonfocal. EXTREMITIES: No edema, no erythema. Principal Diagnosis Abnormal biliary HIDA scan, s/p laparoscopic cholecystectomy, UTI Discharge Exam Gen: WD/WN, NAD, sitting in bed, A&Ox3 HEENT: Normocephalic, atraumatic, conjunctivae moist, sclerae anicteric, mucous membranes moist Lung: Clear to Auscultation bilaterally, no wheezes/rales/rhonchi Heart: Regular rate, regular rhythm, no murmurs, rubs, or gallops Abdomen: Soft, NT, surgical dressing c/d/i, ND, no guarding, +BS x 4 Extremities: no edema Skin: Warm, no rash Discharge Data Allergies Allergy/AdvReac Type Severity Reaction Status Date / Time bee venom protein (honey bee) Allergy Severe Anaphylaxis Verified 12/30/20 08:26 clonazepam Allergy Mild Rash Verified 12/30/20 08:26 cephalexin Allergy Unknown Unknown Verified 12/30/20 08:26 Cephalosporins Allergy Unknown Unknown Verified 12/30/20 08:26 gabapentin Allergy Unknown Unknown Verified 12/30/20 08:26 sulfamethoxazole Allergy Unknown Unknown Verified 12/30/20 08:26 [From Bactrim] trimethoprim [From Bactrim] Allergy Unknown Unknown Verified 12/30/20 08:26 Consultations 02/16/22 23:51 ED Decision to Admit Stat 02/17/22 08:00 Consult Gastroenterology Routine 02/17/22 13:15 Consult General Surgery Routine Procedures Performed Operation Date: 02/17/22 13:55 Actual Procedures p Laparoscopic Cholecystectomy(Not Applicable) - Steve Newman, Ordered Studies 02/16/22 20:55 CT Abd and Pelvis [CT abd pelvis wo con] Urgent FINDINGS: Posterior decompression and fusion at L3-L4 with pedicle screws and rods. Evidence for prior pedicle screw removal at L5. Bibasilar linear and groundglass densities favor subsegmental atelectasis/dependent change. No pneumoperitoneum. No pneumatosis. No fractures within the visualized osseous structures. The bladder, uterus, bilateral adnexa are unremarkable. No pelvic free fluid. Suboptimal evaluation for bowel pathology due to the lack of intravenous and oral contrast. However, there is no definite bowel wall thickening or obstruction. Normal appendix. Colonic diverticulosis. No evidence for acute diverticulitis. A few scattered hypodense lesions again noted within the liver measuring up to 2 cm. These remain stable and likely represent cysts. Multiple small gallstones. No gallbladder wall thickening. The unenhanced pancreas, spleen, and adrenal glands are unremarkable. No renal or ureteral stones. No hydronephrosis. There is a 4.7 cm cyst within the upper pole the left kidney. Normal caliber abdominal aorta. No retroperitoneal lymphadenopathy. IMPRESSION: 1. Cholelithiasis. No gallbladder wall thickening. 2. Colonic diverticulosis. No evidence for acute diverticulitis. 3. No bowel wall thickening or obstruction. 4. Normal appendix. 5. Additional findings as described above. 02/16/22 22:18 US gallbladder Urgent FINDINGS: The pancreas is obscured by bowel gas. Numerous hepatic cysts measure up to approximately 3.2 cm. Mildly increased echogenicity of the hepatic parenchyma suggestive of hepatic steatosis. No solid mass identified. The liver measures up to 16.2 cm in length. Stone filled gallbladder with mild distention. No gallbladder wall thickening or pericholecystic fluid identified. Negative sonographic Mcclure's sign. Normal common bile duct, 2 mm. The imaged right kidney is unremarkable without hydronephrosis. IMPRESSION: 1. Mild gallbladder distention with cholelithiasis. There is no gallbladder wall thickening or pericholecystic fluid identified to suggest acute cholecystitis. Findings could be correlated with nuclear medicine hepatobiliary scan. 2. No biliary ductal dilation. 3. Hepatic steatosis with hepatic cysts. Hospital Course (1) Abnormal biliary HIDA scan: (2) Acute upper abdominal pain: (3) Nausea, vomiting, and diarrhea: (4) UTI (urinary tract infection): (5) Multiple sclerosis: (6) Depression: (7) Diastolic dysfunction: (8) Hypertension: (9) Nocturnal hypoxia: Plan This is a 61yo F with a PMH of MS, HTN, GERD, depression who presents to the [facility] on 02/16/22 with complaints of nausea/vomiting and abdominal pain. GB ultrasound showed mild gallbladder distention with cholelithiasis without wall thickening or pericholecystic fluid identified to suggest acute cholecystitis. Abnormal biliary HIDA scan with low EF prompted laparoscopic cholecystectomy by general surgery on 02/17/2022. Recovering well and tolerating normal diet. Found to have UTI during admission with urine culture on 02/18/2022 growing Coag neg staph not saprophytic. Transitioned to Macrobid x 3 days at discharge. Follow up with general surgery. Hemodynamically stable and comfortable at time of discharge. Total Time Total Time Spent Total Time Spent (In Minutes): 40 Discharge Plan Discharge Items Patient Disposition: Home - Self-Care Reason For Visit: ABDOMINAL PAIN Discharge Diagnosis: Abnormal biliary HIDA scan, s/p laparoscopic cholecystectomy, UTI Activity: As commented below Lifting: No more than 10 pounds Bathing Comment: Can shower over skin glue Driving/Machine Use: Can drive when pain free Non-emergency contact: Surgeon Call non-emergency contact if: you have any medication questions, your pain is not controlled, you have a fever and your temperature is above 101.5 Follow-up/Referrals: Steve Newman DO [Surgeon] - 03/08/22 10:45 am (Please call to make an appt in approx 2 weeks) Teresa Luke MD [Primary Care Provider] - Diet: Regular Addtl Attending Provider Instructions: You were admitted for abdominal pain. GB ultrasound showed mild gallbladder distention with cholelithiasis without wall thickening or pericholecystic fluid identified to suggest acute cholecystitis Abnormal biliary HIDA scan - prompted laparoscopic cholecystectomy by general surgery on 02/17/2022 Tolerating normal diet. Instructions as above Pain medication as needed per surgery Found to have UTI while admitted - complete antibiotic course MEDICATION CHANGES: Macrobid twice daily until gone for UTI Probiotic daily until gone RECOMMENDATIONS FOR FOLLOW-UP: Follow up with PCP and surgery as above. OTHER INSTRUCTIONS: Seek medical attention if you have: * temperature above 101 * chest pain or trouble breathing * abdominal pain, nausea, vomiting * diarrhea, dark stools or bloody stools * any unanswered questions or concerns Call 911 if symptoms are severe. Please take good care of yourself. Call if you have any questions or problems. You can reach a [facility] hospitalist on duty at [facility] 24 hours a day by calling [phone]. Pending Studies at Discharge: No Stand-Alone Forms: [facility], Smoking Cessation Medications and DC Order Prescriptions: New oxycodone-acetaminophen [Percocet] 5-325 mg tablet 1 - 2 tab PO Q4H PRN (Reason: pain, initial therapy, max 6 daily) Qty: 15 0RF nitrofurantoin monohyd/m-cryst [Macrobid] 100 mg capsule 100 mg PO BID 3 Days Qty: 6 0RF Rx Instructions: Take twice daily until gone. Must administer with a meal/food Probiotic 3 billion cell capsule 3,000 mmu cells PO DAILY Qty: 10 0RF Rx Instructions: administer with a meal Continued lorazepam [Ativan] 0.5 mg Tablet 0.5 mg PO HS PRN (Reason: Sleep) ropinirole 2 mg Tablet Extended Release 24 Hr 2 mg PO QAM venlafaxine 150 mg Tablet Extended Release 24hr 150 mg PO QAM baclofen 5 mg Tablet 10 mg PO HS famotidine [Pepcid] 20 mg Tablet 20 mg PO BID losartan 25 mg Tablet 25 mg PO QAM cetirizine 10 mg Tablet 10 mg PO QAM melatonin 5 mg Tablet 5 mg PO HS cholecalciferol (vitamin D3) [Vitamin D3] 50 mcg (2,000 unit) Tablet 50 mcg PO QAM dextroamphetamine-amphetamine 10 mg tablet 10 mg PO USEASDIRECTD Rx Instructions: one tab in am and one tab in afternoon. metoprolol succinate 25 mg tablet extended release 24 hr 12.5 mg PO HS dalfampridine 10 mg tablet extended release 12 hr 10 mg PO BID pantoprazole 40 mg tablet,delayed release (DR/EC) 40 mg PO DAILY rosuvastatin [Crestor] 10 mg tablet 10 mg PO HS Discharge Orders: Discharge Order (Routine); Ordered 02/18/22 Ordered By: Elsa Montero Admission Data Admit Date/Time: 02/17/22 00:57 Attending Provider: Srinivas Ravi Admit Provider: Salvador Horne Primary Care Provider: Teresa Luke Other Providers: Elsa Montero ; Salvador Horne ; Josh Paez ; Steve Newman Other Interventions: Discharge Summary Assessment (RN) Last Done: 02/18/22 15:43 Supervising Physician Co-Signing Physician Notes Patient seen and examined by tn, care coordinated with Elsa Montero PA-C, please refer to her note above for further detail. Patient presented with nausea, vomiting, epigastric discomfort, and right upper quadrant abdominal pain. She was evaluated by gastroenterology and general surgery. Imaging involved CT of the abdomen, ultrasound of the abdomen, as well as HIDA scan. On imaging, gallstones noted, however no acute cholecystitis. HIDA scan obtained, low EF, recommended for cholecystectomy. Patient was also found to have UTI. She underwent cholecystectomy yesterday evening, and tolerated procedure well. Today she feels much better. Denies any nausea or vomiting, she is tolerating diet. She has minimal abdominal tenderness to palpation, which is expected postsurgery. Overall patient is feeling much improved. Patient to be discharged home today, and follow-up with PCP and surgery. MD Breonna
== END 2022-02-18 16:01 | disposition home or self-care (01) ==
LOC: ED 20:22 → 3W 02-17 00:57 → INTOOBSV 02-17 00:57 → 3W 02-17 01:24